=== PATIENT | male | born 1970 | race Caucasian/White ===

== ENCOUNTER 2016-09-25 | Emergency (ER) | payer OTHER ==
--- NOTE | 2016-09-25 18:25 | ED ---
General Adult HPI - General Chief complaint: Recheck/Abnormal Lab/Rx Stated complaint: Med Refill Time Seen by Provider: 09/25/16 17:33 Source: patient, RN notes reviewed Mode of arrival: ambulatory Limitations: no limitations - History of Present Illness Initial comments: Patient is a 46 year old male with chief complaint of left wrist pain after a burn yesterday, and requestiong a medication refill of his lyrica 100mg TID. Patient reports that he attempted to go to his primary care doctor and was not able to be seen as his PCP is on vacation. Patient states that he has chronic peripheral neuropathy. Patient denies any new symptoms, and states he needs to change the dressing on his hand burn. He reports he was seen in the [facility] yesterday and was given silvadene cream. - Related Data Home Medications Medication Instructions Recorded Confirmed HYDROcodone/APAP 10-325MG [[place] 1 tab PO Q8H PRN 09/25/16 09/25/16 10-325] Ibuprofen [Motrin] 800 mg PO Q8H PRN 09/25/16 09/25/16 Pregabalin [Lyrica] 150 mg PO TID 09/25/16 09/25/16 traMADol HCL [Ultram] 50 mg PO Q6HR PRN 09/25/16 09/25/16 Previous Rx's Medication Instructions Recorded Acetaminophen-Codeine 300-30mg 1 tab PO Q4H PRN #12 tablet 09/25/16 [Tylenol #3] Pregabalin [Lyrica] 100 mg PO TID #30 cap 09/25/16 Allergies Allergy/AdvReac Type Severity Reaction Status Date / Time venom-honey bee Allergy RED, HOT, Verified 09/25/16 18:24 [bee venom (honey bee)] ITCHY Review of Systems ROS Statement: Those systems with pertinent positive or pertinent negative responses have been documented in the HPI. ROS Other: All systems not noted in ROS Statement are negative. Past Medical History Past Medical History: CVA/TIA, Fibromyalgia, Musculoskeletal Disorder, Rheumatoid Arthritis (RA) Additional Past Medical History / Comment(s): MIGRAINES, COLITIS, ANKYLOSING SPONDYLITIS, BACK PAIN. History of Any Multi-Drug Resistant Organisms: C-DIFF Date of last positivie culture/infection: 2013 MDRO Source:: colitis Past Surgical History: Cholecystectomy Additional Past Surgical History / Comment(s): neck sx CERVICAL FUSION C-4-5-6 & 7. lumbar fusion L4 and L5 Past Anesthesia/Blood Transfusion Reactions: No Reported Reaction Past Psychological History: Anxiety Additional Psychological History / Comment(s): SOME PANIC EPISODES. Smoking Status: Current every day smoker Past Alcohol Use History: None Reported Additional Past Alcohol Use History / Comment(s): 1 PPD. SMOKING SINCE 18 YRS OLD. Past Drug Use History: None Reported Additional Drug Use History / Comment(s): MARIJUANA IN HIGH SCHOOL General Exam - General Exam Comments Initial Comments: Pleasant 46 year old male. Patient is in no acute distress. Limitations: no limitations General appearance: alert, in no apparent distress Head exam: Present: atraumatic, normocephalic, normal inspection Eye exam: Present: normal appearance, PERRL, EOMI. Absent: scleral icterus, conjunctival injection, periorbital swelling ENT exam: Present: normal exam, mucous membranes moist Neck exam: Present: normal inspection. Absent: tenderness, meningismus, lymphadenopathy Respiratory exam: Present: normal lung sounds bilaterally. Absent: respiratory distress, wheezes, rales, rhonchi, stridor Cardiovascular Exam: Present: regular rate, normal rhythm, normal heart sounds. Absent: systolic murmur, diastolic murmur, rubs, gallop, clicks GI/Abdominal exam: Present: soft, normal bowel sounds. Absent: distended, tenderness, guarding, rebound, rigid Extremities exam: Present: normal inspection, full ROM, normal capillary refill , other (evidence of left hand burn. ). Absent: tenderness, pedal edema, joint swelling, calf tenderness Back exam: Present: normal inspection Neurological exam: Present: alert, oriented X3, CN II-XII intact Psychiatric exam: Present: normal affect, normal mood Skin exam: Present: warm, dry, intact, normal color. Absent: rash Course Vital Signs 09/25/16 16:08 Temperature 98.9 F Pulse Rate 89 Respiratory 16 Rate Blood Pressure 143/87 O2 Sat by Pulse 99 Oximetry Medical Decision Making - Medical Decision Making Patient was given a redressing of left hand burn with silvadene cream. Patient also given Short Rx for lyrica for the next week until seen by PCP. Patient understands treatment plan and will comply. I advised patient that he is not allowed to continue refilling Rx from the [facility]. Return parameters discussed. Disposition Clinical Impression: Burn of left wrist, Neuropathy, Back pain Disposition: HOME SELF-CARE Condition: Good Instructions: Medicine Refill (ED) Additional Instructions: Patient instructed to follow-up with primary care provider. Return to the [facility] if any alarming signs or symptoms occur. Keep area clean with dressing and pain creams. Prescriptions: Acetaminophen-Codeine 300-30mg [Tylenol #3] 1 tab PO Q4H PRN #12 tablet PRN Reason: Pain Pregabalin [Lyrica] 100 mg PO TID #30 cap Referrals: Liborio Echeverria MD [Primary Care Provider] - 1-2 days Time of Disposition: 18:24
== END 2016-09-25 18:48 | disposition home or self-care (01) ==
CPT/HCPCS: 16020; 99281

== ENCOUNTER 2016-09-25 00:08 | Emergency (ER) | payer OTHER ==
[2016-09-25 00:17] VITALS: BP 124/77; TEMP 98
--- NOTE | 2016-09-25 00:24 | ED ---
Burn/Smoke HPI - General Chief complaint: Burn/Smoke Inhalation Stated complaint: Lt hand burn Time Seen by Provider: 09/25/16 00:11 Source: patient, RN notes reviewed Mode of arrival: EMS Limitations: no limitations - History of Present Illness Initial comments: This patient is a 46-year-old man who presents with the onset of a burn to the left hand less than hour ago. The patient states that he had been preparing sandwich. He noted some butter and then while he was carrying it he tripped over a dog and it spilled on The dorsum of his left hand. The patient phoned EMS who transported him here and also gave him a total of 10 mg of morphine for his pain. The patient does state that his last tetanus shot was between 4 and 5 years ago. Patient denies any other injury. MD Complaint: burn -: minutes(s) Type of Exposure: hot liquid Smoke Inhalation: none Place: home Location - Extremities: Left: Hand Severity: severe Associated Symptoms: denies other symptoms Treatment Prior to Arrival: analgesic - Related Data Home Medications Medication Instructions Recorded Confirmed Morphine Sulfate ER [Ms Contin] 60 mg PO BID 07/27/16 08/25/16 Cyclobenzaprine [Flexeril] 10 mg PO TID 08/06/16 08/25/16 Pregabalin [Lyrica] 150 mg PO TID 08/25/16 08/25/16 Previous Rx's Medication Instructions Recorded Ibuprofen [Motrin] 600 mg PO Q6HR PRN #20 tab 08/06/16 Hydrocodone/Acetaminophen [[place] 1 each PO Q6HR PRN #15 tab 08/25/16 5-325] Penicillin V Potassium [Pen Vee K] 500 mg PO QID 10 Days 08/25/16 Allergies Allergy/AdvReac Type Severity Reaction Status Date / Time venom-honey bee Allergy RED, HOT, Verified 08/25/16 12:20 [bee venom (honey bee)] ITCHY Review of Systems ROS Statement: Those systems with pertinent positive or pertinent negative responses have been documented in the HPI. ROS Other: All systems not noted in ROS Statement are negative. Respiratory: Denies: cough, dyspnea Cardiovascular: Denies: chest pain Skin: Reports: lesions (Burn to the left hand) Neurological: Denies: weakness, numbness, paresthesias Past Medical History Past Medical History: CVA/TIA, Fibromyalgia, Musculoskeletal Disorder, Rheumatoid Arthritis (RA) Additional Past Medical History / Comment(s): MIGRAINES, COLITIS, ANKYLOSING SPONDYLITIS, BACK PAIN. History of Any Multi-Drug Resistant Organisms: C-DIFF Date of last positivie culture/infection: 2013 MDRO Source:: colitis Past Surgical History: Cholecystectomy Additional Past Surgical History / Comment(s): neck sx CERVICAL FUSION C-4-5-6 & 7. lumbar fusion L4 and L5 Past Anesthesia/Blood Transfusion Reactions: No Reported Reaction Past Psychological History: Anxiety Additional Psychological History / Comment(s): SOME PANIC EPISODES. Smoking Status: Current every day smoker Past Alcohol Use History: None Reported Additional Past Alcohol Use History / Comment(s): 1 PPD. SMOKING SINCE 18 YRS OLD. Past Drug Use History: None Reported Additional Drug Use History / Comment(s): MARIJUANA IN HIGH SCHOOL General Exam General appearance: alert, in no apparent distress Cardiovascular Exam: Present: other Skin exam: Present: warm, dry, other (The patient has superficial burn to the dorsum of the left hand. It is not circumferential and does not involve the fingers. It is less than 1% TBSA of first-degree, with less than 0.5 cm of some possible second-degree burn area.). Absent: rash Course Vital Signs 09/25/16 09/25/16 00:15 00:55 Temperature 98 F 98 F Pulse Rate 83 80 Respiratory 18 16 Rate Blood Pressure 124/77 124/77 O2 Sat by Pulse 97 99 Oximetry Disposition Clinical Impression: Burn by hot liquid Disposition: HOME SELF-CARE Condition: Good Instructions: Superficial Burn (ED) Referrals: Liborio Echeverria MD [Primary Care Provider] - 1-2 days
[2016-09-25 00:56] VITALS: PULSE 80; RESP 16
== END 2016-09-25 00:56 | disposition home or self-care (01) ==
LOC: EC 00:08
DX: T23.162A Burn of first degree of back of left hand, initial encounter (principal); T31.0 Burns involving less than 10% of body surface; X12.XXXA Contact with other hot fluids, initial encounter; Y93.G3 Activity, cooking and baking; Z79.899 Other long term (current) drug therapy; Z91.030 Bee allergy status; F17.200 Nicotine dependence, unspecified, uncomplicated
CPT/HCPCS: 16020; 99281; 99284

== ENCOUNTER 2016-09-28 17:16 | Emergency (ER) | payer OTHER ==
[2016-09-28] MEDS ORDERED: DIAZEPAM 5 MG TAB PO STA (18:01)
--- NOTE | 2016-09-28 18:57 | ED ---
Anxiety HPI - General Chief Complaint: Anxiety Stated Complaint: ANXIETY Time Seen by Provider: 09/28/16 17:27 Source: patient Mode of arrival: ambulatory - History of Present Illness Initial Comments: Patient is a 46-year-old male presenting with anxiety after her father's 2 days ago. Patient states his father 2 days ago heart attack. Patient states he doesn't really talk to his father feels uncomfortable about him dying. Patient states his father did several inappropriate things going up. Patient denies being suicidal or homicidal. Patient denies hallucinations. Patient follows with a counselor outpatient and can get back in touch with him. Patient states he has no insurance and his PCP is out of network now. Patient understands that he can call his insurance and asked for referrals. He also will be provided referrals today. Patient also is concerned about left hand dorsal aspect burn. Patient states he was given Tylenol 3 which helps. He is requesting a refill. - Related Data Home Medications: Home Medications Medication Instructions Recorded Confirmed HYDROcodone/APAP 10-325MG [[place] 1 tab PO Q8H PRN 09/25/16 09/28/16 10-325] Pregabalin [Lyrica] 150 mg PO TID 09/25/16 09/28/16 traMADol HCL [Ultram] 50 mg PO Q6HR PRN 09/25/16 09/28/16 Naproxen 500 mg PO Q12HR PRN 09/28/16 09/28/16 Previous Rx's Medication Instructions Recorded Acetaminophen-Codeine 300-30mg 1 tab PO Q6H PRN #6 tablet 09/28/16 [Tylenol #3] Allergies/Adverse Reactions: Allergies Allergy/AdvReac Type Severity Reaction Status Date / Time venom-honey bee Allergy Rash/Hives Verified 09/28/16 17:44 [bee venom (honey bee)] Review of Systems ROS Statement: Those systems with pertinent positive or pertinent negative responses have been documented in the HPI. Constitutional: No fever and no chills. HENT: No congestion, no rhinorrhea and no sore throat. Eyes: No discharge and no redness. Respiratory: No cough and no shortness of breath. Cardiovascular: No chest pain and no palpitations. Gastrointestinal: No nausea, no vomiting, no abdominal pain and no diarrhea. Genitourinary: No dysuria and no hematuria. Musculoskeletal: No back pain and no arthralgias. Skin: No pallor and +rash. Neurological: No dizziness and No headaches. Psych: Anxious. Not suicidal, not homicidal, not hallucinating. ROS Other: All systems not noted in ROS Statement are negative. Past Medical History Past Medical History: CVA/TIA, Fibromyalgia, Musculoskeletal Disorder, Rheumatoid Arthritis (RA) Additional Past Medical History / Comment(s): MIGRAINES, COLITIS, ANKYLOSING SPONDYLITIS, BACK PAIN. History of Any Multi-Drug Resistant Organisms: C-DIFF Date of last positivie culture/infection: 2013 MDRO Source:: colitis Past Surgical History: Cholecystectomy Additional Past Surgical History / Comment(s): neck sx CERVICAL FUSION C-4-5-6 & 7. lumbar fusion L4 and L5 Past Anesthesia/Blood Transfusion Reactions: No Reported Reaction Past Psychological History: Anxiety Additional Psychological History / Comment(s): SOME PANIC EPISODES. Smoking Status: Current every day smoker Past Alcohol Use History: None Reported Additional Past Alcohol Use History / Comment(s): 1 PPD. SMOKING SINCE 18 YRS OLD. Past Drug Use History: None Reported Additional Drug Use History / Comment(s): MARIJUANA IN HIGH SCHOOL General Exam - General Exam Comments Initial Comments: Constitutional: Patient appears well-developed and well-nourished. No distress. Anxious appearing. Mother at bedside. Head: Normocephalic and atraumatic. Eyes: Conjunctivae and EOM are normal. Right eye exhibits no discharge. Left eye exhibits no discharge. No scleral icterus. Neck: Normal range of motion. Neck supple. Cardiovascular: Normal rate and regular rhythm. No murmur heard. Pulmonary/Chest: Effort normal and breath sounds normal. No respiratory distress. No wheezes. Abdominal: Soft. No distension. There is no tenderness. There is no rebound and no guarding. Musculoskeletal: Left hand with dorsal aspect red in nature. Burn appears to be healing well. No signs of infection. Mildly tender. Normal range of motion. No edema or tenderness. Neurological: Patient alert and oriented to person, place, and time. Skin: Skin is warm and dry. Not diaphoretic. Psych: Not homicidal, suicidal, hallucinating. Patient is open and engaging in conversation. Nursing notes and vitals reviewed. Limitations: no limitations Course Vital Signs 09/28/16 17:22 Temperature 97.8 F Pulse Rate 104 H Respiratory 20 Rate Blood Pressure 154/86 O2 Sat by Pulse 99 Oximetry - Reevaluation(s) Reevaluation #1: 09/28/16 19:01 Patient given Valium and feeling better. Patient understands that he is going to the grieving process as well as dealing with past history of his father. Patient understands this be done with psychiatrist and counselor. Patient was given referrals. Medical Decision Making - Medical Decision Making Patient is a 46-year-old male presenting with anxiety related to father's 2 days ago. Patient with unremarkable EKG. Symptoms improved with Valium by mouth. Is requesting Tylenol 3 for left hand pain from a burn. This refill for Tylenol 3 was provided. Patient given referrals for PCP as well as mental health. Prior to discharge, patient was resting comfortably in bed. Course of stay improved. Denies pain. Discussed physical exam and diagnostic tests with patient. Questions answered and patient is agreeable to discharge with close follow up with Primary Care Physician. Instructed to return to Emergency Department if symptoms worsen. Rate 91. NSR. No ST-T wave changes. [place] internal normal . QRS interval normal. QTc duration normal. Disposition Clinical Impression: Burn of left hand, Grieving Disposition: HOME SELF-CARE Condition: Good Instructions: Generalized Anxiety Disorder (ED) Prescriptions: Acetaminophen-Codeine 300-30mg [Tylenol #3] 1 tab PO Q6H PRN #6 tablet PRN Reason: Severe Pain Referrals: None,Stated [Primary Care Provider] - 1-2 days Catarina Moya MD [REFERRING] - 1-2 days
[2016-09-28 18:59] VITALS: BP 141/83; PULSE 76; RESP 16; TEMP 98.2
== END 2016-09-28 19:06 | disposition home or self-care (01) ==
LOC: EC 17:16
DX: F43.22 Adjustment disorder with anxiety (principal); T23.002A Burn of unspecified degree of left hand, unspecified site, initial encounter; Z86.73 Personal history of transient ischemic attack (TIA), and cerebral infarction without residual deficits; M79.7 Fibromyalgia; F41.9 Anxiety disorder, unspecified; Z79.899 Other long term (current) drug therapy
CPT/HCPCS: 93005; 99283

== ENCOUNTER 2016-10-06 11:06 | Emergency (ER) | payer OTHER ==
[2016-10-06 11:17] VITALS: BP 167/93; PULSE 114; RESP 20; TEMP 97.4
--- NOTE | 2016-10-06 11:41 | ED ---
General Adult HPI - General Chief complaint: Upper Respiratory Infection Stated complaint: CHEST PAIN, COUGHING Source: patient, RN notes reviewed, old records reviewed Mode of arrival: ambulatory Limitations: no limitations - History of Present Illness Initial comments: Chief complaint and history of present illness a 46-year-old male here with a complaint of muscle aches and pains fever at home sore throat productive cough and chest wall pain with coughing. No stiff neck. - Related Data Home Medications Medication Instructions Recorded Confirmed HYDROcodone/APAP 10-325MG [[place] 1 tab PO Q8H PRN 09/25/16 10/06/16 10-325] Pregabalin [Lyrica] 150 mg PO TID 09/25/16 10/06/16 traMADol HCL [Ultram] 50 mg PO Q6HR PRN 09/25/16 10/06/16 Naproxen 500 mg PO Q12HR PRN 09/28/16 10/06/16 Previous Rx's Medication Instructions Recorded Acetaminophen-Codeine 300-30mg 1 tab PO Q6H PRN #6 tablet 09/28/16 [Tylenol #3] Azithromycin [Zithromax Z-pack] 250 mg PO DIRECTED #6 tab 10/06/16 Allergies Allergy/AdvReac Type Severity Reaction Status Date / Time venom-honey bee Allergy Rash/Hives Verified 10/06/16 11:48 [bee venom (honey bee)] Review of Systems ROS Statement: Those systems with pertinent positive or pertinent negative responses have been documented in the HPI. Review of systems mild headache with coughing. Sore throat with coughing. Chest wall pain with repetitive coughing productive green colored phlegm. No nausea or vomiting. No diarrhea. No skin rashes. No neuro deficits. All systems are reviewed. Past medical problems significant for TIA secondary to stress, fibromyalgia, ankylosing spondylitis, migraines and colitis. The patient's family history COPDmother, no cancers. Patient has ALLERGIES to bees. He does smoke strongly encouraged stop we discussed this for over 3 minutes. Denies alcohol use. ROS Other: All systems not noted in ROS Statement are negative. Past Medical History Past Medical History: CVA/TIA, Fibromyalgia, Musculoskeletal Disorder, Rheumatoid Arthritis (RA) Additional Past Medical History / Comment(s): MIGRAINES, COLITIS, ANKYLOSING SPONDYLITIS, BACK PAIN. History of Any Multi-Drug Resistant Organisms: C-DIFF Date of last positivie culture/infection: 2013 MDRO Source:: colitis Past Surgical History: Cholecystectomy Additional Past Surgical History / Comment(s): neck sx CERVICAL FUSION C-4-5-6 & 7. lumbar fusion L4 and L5 Past Anesthesia/Blood Transfusion Reactions: No Reported Reaction Past Psychological History: Anxiety Additional Psychological History / Comment(s): SOME PANIC EPISODES. Smoking Status: Current every day smoker Past Alcohol Use History: None Reported Additional Past Alcohol Use History / Comment(s): 1 PPD. SMOKING SINCE 18 YRS OLD. Past Drug Use History: None Reported Additional Drug Use History / Comment(s): MARIJUANA IN HIGH SCHOOL General Exam - General Exam Comments Initial Comments: General: The patient is awake and alert, complaining of painful productive cough, green in color. Muscle aches and pains. Vital signs temp 97.4 pulse 114 respiratory rate 20 pulse ox 99% room air blood pressure 167/93. Elevated systolic diastolic most likely due to his illness and pain. This be repeated prior to discharge and the patient was advised to follow-up with family physician in the next 1-2 weeks for recheck blood pressure. Eye: Pupils are equal, round and reactive to light, extra-ocular movements are intact ; there is normal conjunctiva bilaterally. No signs of icterus. Ears, nose, mouth and throat: There are moist mucous membranes and no oral lesions. Reddened oropharynx. Neck: The neck is supple, there is no tenderness , evidence of healed surgical scar from cervical fusion. Cardiovascular: Tachycardic heart rate 114.. No murmur, rub or gallop is appreciated. Respiratory: Lungs are clear to auscultation, respirations are non-labored, breath sounds are equal. No wheezes, stridor, rales, or rhonchi. Gastrointestinal: Soft, non-distended, non-tender abdomen without masses or organomegaly noted. There is no rebound or guarding present. No CVA tenderness. Bowel sounds are unremarkable. Back: There is no tenderness to palpation in the midline. There is no obvious deformity. No rashes noted. Musculoskeletal: Normal ROM, no tenderness, There is no pedal edema. There is no calf tenderness or swelling. Sensation intact. Pulses equal bilaterally 2+. Neurological: Denies any neuro deficits no difficulty walking or balance. Skin: Skin is warm and dry and no rashes or lesions are noted. Limitations: no limitations Course Vital Signs 10/06/16 10/06/16 11:14 11:40 Temperature 97.4 F L Pulse Rate 114 H Respiratory 20 20 Rate Blood Pressure 167/93 O2 Sat by Pulse 99 Oximetry EKG Findings - EKG Comments: EKG Findings:: EKG was done and reviewed at 1116 showing sinus tachycardia rate [address] elevation no ectopy. [place] interval is 142 QRS 80 QT [address] Temple Medical Decision Making - Medical Decision Making Chest x-ray was done and reviewed. The radiologist's findings are there is no focal airspace opacity, pleural effusion, or pneumothorax seen. Cardiac silhouette size is within normal limits. The osseous structures are intact. Impression no acute cardiopulmonary process. As read by Dr. Chaney Influenza reported to be negative by laboratory. The patient be placed on a Z-Shiva to be taken for bronchitis. He's had multiple medications recently old continue with those studies received to help suppress his cough. We did discuss his multiple visits to multiple doctors for audible pain medications. Patient advised follow-up with chronic pain management doctor through his family physician. - Lab Data Lab Results 10/06/16 Range/Units 11:41 Influenza Type A RNA Not Detected (Not Detectd) Influenza Type B (PCR) Not Detected (Not Detectd) Disposition Clinical Impression: Bronchitis Disposition: HOME SELF-CARE Condition: Fair Instructions: Upper Respiratory Infection (ED) Additional Instructions: Increase fluids, take ibuprofen or Tylenol for discomfort and fever. Use your opioid medications as directed Prescriptions: Azithromycin [Zithromax Z-pack] 250 mg PO DIRECTED #6 tab Time of Disposition: 12:54
--- NOTE | 2016-10-06 12:04 | XR ---
EXAMINATION TYPE: XR chest 2V DATE OF EXAM: 10/06/2016 11:59 AM COMPARISON: 01/25/2016 HISTORY: Productive cough with costochondritis TECHNIQUE: Frontal and lateral views of the chest are obtained. FINDINGS: There is no focal air space opacity, pleural effusion, or pneumothorax seen. The cardiac silhouette size is within normal limits. The osseous structures are intact. IMPRESSION: No acute cardiopulmonary process.
[2016-10-06] MEDS ORDERED: SODIUM CHLORIDE 0.9% 500 ML IV STA (12:35)
[2016-10-06] MEDS ORDERED: SODIUM CHLORIDE 0.9% 1,000 ML IV STA (12:35)
[2016-10-06] MEDS ORDERED: NALOXONE 0.4 MG/ML 10 ML VIAL IVP STA (12:37)
== END 2016-10-06 12:50 | disposition home or self-care (01) ==
LOC: EC 11:06
DX: J40 Bronchitis, not specified as acute or chronic (principal); M79.7 Fibromyalgia; F17.200 Nicotine dependence, unspecified, uncomplicated; Z91.030 Bee allergy status; Z79.899 Other long term (current) drug therapy
CPT/HCPCS: 71020; 87502; 93005; 99284

== ENCOUNTER 2016-11-05 14:21 | Emergency (ER) | payer OTHER ==
[2016-11-05 14:28] VITALS: BP 153/76; PULSE 105; RESP 20; TEMP 98.9
--- NOTE | 2016-11-05 15:02 | ED ---
General Adult HPI - General Chief complaint: Back Pain/Injury Stated complaint: back pain Time Seen by Provider: 11/05/16 14:38 Source: patient, RN notes reviewed Mode of arrival: ambulatory Limitations: no limitations - History of Present Illness Initial comments: Patient is a pleasant 46-year-old male presenting to the emergency department back pain. Patient did have rods placed by his doctor at [facility] 2 weeks ago. Patient has continued discomfort. Patient feels discomfort may be somewhat increasing. Patient denies any fevers or weakness. Patient has not noticed any redness. Patient questions whether or not there could be any swelling. - Related Data Home Medications Medication Instructions Recorded Confirmed HYDROcodone/APAP 10-325MG [[place] 1 tab PO Q8H PRN 09/25/16 10/06/16 10-325] Pregabalin [Lyrica] 150 mg PO TID 09/25/16 10/06/16 traMADol HCL [Ultram] 50 mg PO Q6HR PRN 09/25/16 10/06/16 Naproxen 500 mg PO Q12HR PRN 09/28/16 10/06/16 Previous Rx's Medication Instructions Recorded Acetaminophen-Codeine 300-30mg 1 tab PO Q6H PRN #6 tablet 09/28/16 [Tylenol #3] Azithromycin [Zithromax Z-pack] 250 mg PO DIRECTED #6 tab 10/06/16 Acetaminophen-Codeine 300-30mg 2 each PO Q6H PRN #12 tablet 11/05/16 [Tylenol #3] Allergies Allergy/AdvReac Type Severity Reaction Status Date / Time venom-honey bee Allergy Rash/Hives Verified 11/05/16 14:28 [bee venom (honey bee)] Review of Systems ROS Statement: Those systems with pertinent positive or pertinent negative responses have been documented in the HPI. ROS Other: All systems not noted in ROS Statement are negative. Constitutional: Denies: fever, chills, night sweats Eyes: Denies: eye pain ENT: Denies: ear pain Respiratory: Denies: cough Cardiovascular: Denies: palpitations Endocrine: Denies: fatigue Gastrointestinal: Denies: abdominal pain Genitourinary: Denies: dysuria Musculoskeletal: Reports: back pain Skin: Denies: rash Neurological: Denies: weakness Past Medical History Past Medical History: CVA/TIA, Fibromyalgia, Musculoskeletal Disorder, Rheumatoid Arthritis (RA) Additional Past Medical History / Comment(s): MIGRAINES, COLITIS, ANKYLOSING SPONDYLITIS, BACK PAIN. History of Any Multi-Drug Resistant Organisms: C-DIFF Date of last positivie culture/infection: 2013 MDRO Source:: colitis Past Surgical History: Cholecystectomy, Orthopedic Surgery Additional Past Surgical History / Comment(s): neck sx CERVICAL FUSION C-4-5-6 & 7. lumbar fusion L4 and L5 Past Anesthesia/Blood Transfusion Reactions: No Reported Reaction Past Psychological History: Anxiety Additional Psychological History / Comment(s): SOME PANIC EPISODES. Smoking Status: Current every day smoker Past Alcohol Use History: None Reported Additional Past Alcohol Use History / Comment(s): 1 PPD. SMOKING SINCE 18 YRS OLD. Past Drug Use History: None Reported Additional Drug Use History / Comment(s): MARIJUANA IN HIGH SCHOOL General Exam Limitations: no limitations General appearance: alert, in no apparent distress Head exam: Present: atraumatic Eye exam: Present: normal appearance ENT exam: Present: normal oropharynx Neck exam: Present: normal inspection Respiratory exam: Present: normal lung sounds bilaterally Cardiovascular Exam: Present: regular rate, normal rhythm GI/Abdominal exam: Present: soft. Absent: tenderness Extremities exam: Present: normal inspection Neurological exam: Present: alert. Absent: motor sensory deficit Expanded Sensory exam: Lower Extremity Light Touch: Normal Motor strength exam: RLE: 5, LLE: 5 Psychiatric exam: Present: normal affect, normal mood Skin exam: Present: other (3 incisions lateral to midline in the lower lumbar/ upper sacral region. There is trace erythema and swelling that is felt to be postoperative in nature.) Course Vital Signs 11/05/16 14:26 Temperature 98.9 F Pulse Rate 105 H Respiratory 20 Rate Blood Pressure 153/76 O2 Sat by Pulse 99 Oximetry Medical Decision Making - Medical Decision Making Patient is informed exam and felt to be low risk for infection. Patient is advised to follow-up with his doctor tomorrow rather than Sunday as scheduled. Patient is further advised if symptoms worsen to go directly to his doctors or the hospital where the procedure was done. This includes increased pain or weakness or fever or swelling or redness. Patient requests Tylenol 3. Patient states he was prescribed Percocet the pills are too strong for him. Disposition Clinical Impression: Back pain Disposition: HOME SELF-CARE Condition: Stable Instructions: Chronic Back Pain (ED) Additional Instructions: Please follow-up with your surgeon tomorrow. Return or head directly to [facility] for increased pain, fever, redness, swelling, worsening symptoms or other concerns. Prescriptions: Acetaminophen-Codeine 300-30mg [Tylenol #3] 2 each PO Q6H PRN #12 tablet PRN Reason: Pain Referrals: Liborio Echeverria MD [Primary Care Provider] - 1-2 days
== END 2016-11-05 15:09 | disposition home or self-care (01) ==
LOC: EC 14:21
DX: G89.29 Other chronic pain (principal); M54.9 Dorsalgia, unspecified; L53.9 Erythematous condition, unspecified; M06.9 Rheumatoid arthritis, unspecified; M79.7 Fibromyalgia; F17.200 Nicotine dependence, unspecified, uncomplicated; Z79.899 Other long term (current) drug therapy; Z91.030 Bee allergy status; Z98.1 Arthrodesis status; Z86.73 Personal history of transient ischemic attack (TIA), and cerebral infarction without residual deficits
CPT/HCPCS: 99283

== ENCOUNTER 2017-01-27 18:03 | Emergency (ER) | payer OTHER ==
[2017-01-27 18:10] VITALS: BP 126/84; PULSE 117; RESP 16; TEMP 97
--- NOTE | 2017-01-27 18:37 | ED ---
ENT HPI - General Chief complaint: Dental/Oral Stated complaint: DENTAL PAIN Time Seen by Provider: 01/27/17 18:23 Source: patient Mode of arrival: ambulatory Limitations: no limitations - History of Present Illness Initial comments: Patient is a 46-year-old male presenting to the emergency department with complaints of toothache 2 weeks increasing over the last week. Patient states that he has a dentist appointment on 02/09/2017 but is unable to tolerate the pain. Patient states he took Tylenol and Motrin prior to arrival without relief. Patient currently rates pain a 10. Described as sharp. Exacerbated with eating. Patient denies chills, fevers, nausea, vomiting, shortness of breath, chest pain, abdominal pain, numbness or tingling, or trismus. Patient denies ear pain or tinnitus. MD complaint: tooth pain Onset/Timin -: week(s) Location: tooth # (28) Severity: moderate Severity scale (1-10): 8 Quality: sharp Consistency: constant Improves with: none Worsens with: eating Context- Dental: poor dental care Associated Symptoms: toothache - Related Data Home Medications Medication Instructions Recorded Confirmed Pregabalin [Lyrica] 150 mg PO TID 11/05/16 01/27/17 Previous Rx's Medication Instructions Recorded Penicillin V Potassium [Pen Vee K] 500 mg PO QID #28 tab 01/27/17 traMADol HCl [Ultram] 50 mg PO Q6H PRN #12 tab 01/27/17 Allergies Allergy/AdvReac Type Severity Reaction Status Date / Time venom-honey bee Allergy Rash/Hives Verified 01/27/17 18:10 [bee venom (honey bee)] oxycodone AdvReac Nausea Verified 01/27/17 18:10 Review of Systems ROS Statement: Those systems with pertinent positive or pertinent negative responses have been documented in the HPI. ROS Other: All systems not noted in ROS Statement are negative. Past Medical History Past Medical History: CVA/TIA, Fibromyalgia, Musculoskeletal Disorder, Rheumatoid Arthritis (RA) Additional Past Medical History / Comment(s): MIGRAINES, COLITIS, ANKYLOSING SPONDYLITIS, BACK PAIN. History of Any Multi-Drug Resistant Organisms: C-DIFF Date of last positivie culture/infection: 2013 MDRO Source:: colitis Past Surgical History: Cholecystectomy, Orthopedic Surgery Additional Past Surgical History / Comment(s): neck sx CERVICAL FUSION C-4-5-6 & 7. lumbar fusion L4 and L5 Past Anesthesia/Blood Transfusion Reactions: No Reported Reaction Past Psychological History: Anxiety Additional Psychological History / Comment(s): SOME PANIC EPISODES. Smoking Status: Current every day smoker Past Alcohol Use History: None Reported Additional Past Alcohol Use History / Comment(s): 1 PPD. SMOKING SINCE 18 YRS OLD. Past Drug Use History: None Reported Additional Drug Use History / Comment(s): MARIJUANA IN HIGH SCHOOL General Exam Limitations: no limitations General appearance: alert, in no apparent distress Head exam: Present: atraumatic, normocephalic, normal inspection Eye exam: Present: normal appearance. Absent: scleral icterus, conjunctival injection, periorbital swelling, periorbital tenderness Expanded Ear exam: Present: normal external inspection Mouth exam: Present: tongue normal. Absent: drooling, trismus Teeth exam: Present: fractured tooth # (28), dental tenderness # (28) Throat exam: normal inspection. negative: tonsillar erythema, tonsillomegaly, tonsillar exudate, R peritonsillar mass, L peritonsillar mass Neck exam: Present: normal inspection, full ROM. Absent: tenderness, lymphadenopathy Respiratory exam: Present: normal lung sounds bilaterally. Absent: respiratory distress, wheezes, rales, rhonchi, stridor Cardiovascular Exam: Present: regular rate, tachycardia, normal heart sounds. Absent: systolic murmur GI/Abdominal exam: Present: soft, normal bowel sounds. Absent: distended, tenderness Extremities exam: Present: normal inspection, full ROM, normal capillary refill. Absent: tenderness, pedal edema, joint swelling, calf tenderness Neurological exam: Present: alert, oriented X3, normal gait, other (No focal deficits noted) Psychiatric exam: Present: normal affect, normal mood Course Vital Signs 01/27/17 18:07 Temperature 97.0 F L Pulse Rate 117 H Respiratory 16 Rate Blood Pressure 126/84 O2 Sat by Pulse 98 Oximetry Medical Decision Making - Medical Decision Making Fractured tooth #28. Toothache #28. Patient placed on antibiotics and given pain medicine. Patient instructed to keep dental appointment as already scheduled. Patient instructed to return to the emergency department with new or worsening symptoms. Patient agrees with treatment plan. Return parameters and discharge instructions reviewed. Disposition Clinical Impression: Fracture of tooth, Tooth pain Disposition: HOME SELF-CARE Condition: Good Instructions: Toothache (ED) Additional Instructions: Finish antibiotic as prescribed. Apply warm compresses for comfort. Continue tramadol for pain as necessary. Follow-up with dentist as previously arranged. Please return to the emergency department with any new or worsening symptoms. Prescriptions: Penicillin V Potassium [Pen Vee K] 500 mg PO QID #28 tab traMADol HCl [Ultram] 50 mg PO Q6H PRN #12 tab PRN Reason: Pain Referrals: Liborio Echeverria MD [Primary Care Provider] - 1-2 days Time of Disposition: 18:37
== END 2017-01-27 18:40 | disposition home or self-care (01) ==
LOC: EC 18:03
DX: S02.5XXA Fracture of tooth (traumatic), initial encounter for closed fracture (principal); F17.200 Nicotine dependence, unspecified, uncomplicated; Z79.899 Other long term (current) drug therapy; Z91.030 Bee allergy status; Z88.8 Allergy status to other drugs, medicaments and biological substances; X58.XXXA Exposure to other specified factors, initial encounter
CPT/HCPCS: 99282

== ENCOUNTER 2017-02-10 17:23 | Emergency (ER) | payer OTHER ==
[2017-02-10 17:31] VITALS: BP 144/94; PULSE 93; RESP 20; TEMP 98.2
--- NOTE | 2017-02-10 18:02 | ED ---
ENT HPI - General Chief complaint: Dental/Oral Stated complaint: Dental Pain Time Seen by Provider: 02/10/17 17:36 Source: patient Mode of arrival: ambulatory Limitations: no limitations - History of Present Illness Initial comments: Patient is a 46-year-old male presenting to the emergency department with complaints of toothache 2 weeks increasing over the 2 days. Patient was recently seen on 01/27/2017 with similar complaints and was started on antibiotics. Patient states he finished the antibiotics and pain return. Patient states that he has a dentist appointment on 02/16/2017. Patient states he Motrin prior to arrival without relief. Patient currently rates pain a 10. Described as sharp. Exacerbated with eating. Patient denies chills, fevers, nausea, vomiting, shortness of breath, chest pain, abdominal pain, numbness or tingling, or trismus. Patient denies ear pain or tinnitus. - Related Data Home Medications Medication Instructions Recorded Confirmed Pregabalin [Lyrica] 150 mg PO TID 11/05/16 02/10/17 Previous Rx's Medication Instructions Recorded traMADol HCl [Ultram] 50 mg PO Q6H PRN #12 tab 01/27/17 Cephalexin [Keflex] 500 mg PO Q6HR #40 cap 02/10/17 traMADol HCl [Ultram] 50 mg PO Q6H PRN #20 tab 02/10/17 Allergies Allergy/AdvReac Type Severity Reaction Status Date / Time venom-honey bee Allergy Rash/Hives Verified 02/10/17 17:31 [bee venom (honey bee)] oxycodone AdvReac Nausea Verified 02/10/17 17:31 Review of Systems ROS Statement: Those systems with pertinent positive or pertinent negative responses have been documented in the HPI. ROS Other: All systems not noted in ROS Statement are negative. Past Medical History Past Medical History: CVA/TIA, Fibromyalgia, Musculoskeletal Disorder, Rheumatoid Arthritis (RA) Additional Past Medical History / Comment(s): MIGRAINES, COLITIS, ANKYLOSING SPONDYLITIS, BACK PAIN. History of Any Multi-Drug Resistant Organisms: C-DIFF Date of last positivie culture/infection: 2013 MDRO Source:: colitis Past Surgical History: Cholecystectomy, Orthopedic Surgery Additional Past Surgical History / Comment(s): neck sx CERVICAL FUSION C-4-5-6 & 7. lumbar fusion L4 and L5 Past Anesthesia/Blood Transfusion Reactions: No Reported Reaction Past Psychological History: Anxiety Additional Psychological History / Comment(s): SOME PANIC EPISODES. Smoking Status: Current every day smoker Past Alcohol Use History: None Reported Additional Past Alcohol Use History / Comment(s): 1 PPD. SMOKING SINCE 18 YRS OLD. Past Drug Use History: None Reported Additional Drug Use History / Comment(s): MARIJUANA IN HIGH SCHOOL General Exam - General Exam Comments Initial Comments: Limitations: no limitations General appearance: alert, in no apparent distress Head exam: Present: atraumatic, normocephalic, normal inspection Eye exam: Present: normal appearance. Absent: scleral icterus, conjunctival injection, periorbital swelling, periorbital tenderness Expanded Ear exam: Present: normal external inspection Mouth exam: Present: tongue normal. Absent: drooling, trismus Teeth exam: Present: fractured tooth # (28), dental tenderness # (28) Throat exam: normal inspection. negative: tonsillar erythema, tonsillomegaly, tonsillar exudate, R peritonsillar mass, L peritonsillar mass Neck exam: Present: normal inspection, full ROM. Absent: tenderness, lymphadenopathy Respiratory exam: Present: normal lung sounds bilaterally. Absent: respiratory distress, wheezes, rales, rhonchi, stridor Cardiovascular Exam: Present: regular rate, tachycardia, normal heart sounds. Absent: systolic murmur GI/Abdominal exam: Present: soft, normal bowel sounds. Absent: distended, tenderness Extremities exam: Present: normal inspection, full ROM, normal capillary refill. Absent: tenderness, pedal edema, joint swelling, calf tenderness Neurological exam: Present: alert, oriented X3, normal gait, other (No focal deficits noted) Psychiatric exam: Present: normal affect, normal mood Limitations: no limitations Course Vital Signs 02/10/17 17:29 Temperature 98.2 F Pulse Rate 93 Respiratory 20 Rate Blood Pressure 144/94 O2 Sat by Pulse 100 Oximetry Medical Decision Making - Medical Decision Making Toothache to tooth #28 with history of fracture. Patient started on Keflex and given prescription for pain medicine. Patient instructed to keep appointment with dentist as already scheduled. Patient instructed to return to the emergency department with any new or worsening symptoms. Patient agrees to plan of care. Discharge instructions and return parameters reviewed. Disposition Clinical Impression: Fracture of tooth, Pain, dental Disposition: HOME SELF-CARE Condition: Good Instructions: Toothache (ED) Additional Instructions: Finish antibiotic as prescribed. Apply warm compresses for comfort. Continue tramadol for pain as necessary. Follow-up with dentist as previously arranged. Please return to the emergency department with any new or worsening symptoms. Prescriptions: Cephalexin [Keflex] 500 mg PO Q6HR #40 cap traMADol HCl [Ultram] 50 mg PO Q6H PRN #20 tab PRN Reason: Pain Referrals: Liborio Echeverria MD [Primary Care Provider] - 1-2 days Time of Disposition: 18:03
== END 2017-02-10 18:16 | disposition home or self-care (01) ==
LOC: EC 17:23
DX: S02.5XXD Fracture of tooth (traumatic), subsequent encounter for fracture with routine healing (principal); M79.7 Fibromyalgia; F41.9 Anxiety disorder, unspecified; F17.200 Nicotine dependence, unspecified, uncomplicated; Z79.899 Other long term (current) drug therapy; Z91.030 Bee allergy status; Z88.5 Allergy status to narcotic agent; X58.XXXD Exposure to other specified factors, subsequent encounter
CPT/HCPCS: 99282

== ENCOUNTER 2018-04-30 13:46 | Emergency (ER) | payer BC ==
[2018-04-30 13:59] VITALS: BP 159/95; PULSE 80; RESP 18; TEMP 98
--- NOTE | 2018-04-30 14:11 | ED ---
General Adult HPI - General Chief complaint: Anxiety Stated complaint: anxiety/eye problem Time Seen by Provider: 04/30/18 13:54 Source: patient, RN notes reviewed Mode of arrival: ambulatory Limitations: no limitations - History of Present Illness Initial comments: 47-year-old male presents emergency Department chief complaint anxiety. Patient states she's having trouble dealing with passing of his mother. Patient states the is tomorrow. Patient states that his mother unexpectedly from a heart attack. Patient denies suicidal or homicidal ideation. Patient states that he had similar symptoms after passing of his father. Patient also complains of left eye irritation. He states that the lower eyelid is swollen he states there is a small bump that he noticed. Denies any visual disturbance. Denies any pain with ocular movement. Patient denies any headache, dizziness. - Related Data Home Medications Medication Instructions Recorded Confirmed Pregabalin [Lyrica] 150 mg PO TID 11/05/16 02/10/17 Previous Rx's Medication Instructions Recorded traMADol HCl [Ultram] 50 mg PO Q6H PRN #12 tab 01/27/17 Cephalexin [Keflex] 500 mg PO Q6HR #40 cap 02/10/17 traMADol HCl [Ultram] 50 mg PO Q6H PRN #20 tab 02/10/17 Diazepam [Valium] 5 mg PO BID PRN #10 tab 04/30/18 Tobramycin [Tobrex 0.3% Ophth Soln] 1 drop LEFT EYE Q4HR #5 ml 04/30/18 Allergies Allergy/AdvReac Type Severity Reaction Status Date / Time venom-honey bee Allergy Rash/Hives Verified 04/30/18 13:59 [bee venom (honey bee)] oxycodone AdvReac Nausea Verified 04/30/18 13:59 Review of Systems ROS Statement: Those systems with pertinent positive or pertinent negative responses have been documented in the HPI. ROS Other: All systems not noted in ROS Statement are negative. Past Medical History Past Medical History: CVA/TIA, Fibromyalgia, Musculoskeletal Disorder, Rheumatoid Arthritis (RA) Additional Past Medical History / Comment(s): MIGRAINES, COLITIS, ANKYLOSING SPONDYLITIS, BACK PAIN. History of Any Multi-Drug Resistant Organisms: C-DIFF Date of last positivie culture/infection: 2013 MDRO Source:: colitis Past Surgical History: Cholecystectomy, Orthopedic Surgery Additional Past Surgical History / Comment(s): neck sx CERVICAL FUSION C-4-5-6 & 7. lumbar fusion L4 and L5 Past Anesthesia/Blood Transfusion Reactions: No Reported Reaction Past Psychological History: Anxiety Smoking Status: Current every day smoker Past Alcohol Use History: None Reported Past Drug Use History: None Reported General Exam Limitations: no limitations General appearance: alert, in no apparent distress Head exam: Present: atraumatic, normocephalic, normal inspection Eye exam: Present: PERRL, EOMI, other (Left lower eyelid there is no sign noted , mild swelling). Absent: scleral icterus, conjunctival injection, periorbital swelling ENT exam: Present: normal exam, normal oropharynx, mucous membranes moist, TM's normal bilaterally, normal external ear exam Neck exam: Present: normal inspection, full ROM. Absent: tenderness, meningismus, lymphadenopathy Respiratory exam: Present: normal lung sounds bilaterally. Absent: respiratory distress, wheezes, rales, rhonchi, stridor Cardiovascular Exam: Present: regular rate, normal rhythm, normal heart sounds. Absent: systolic murmur, diastolic murmur, rubs, gallop, clicks Psychiatric exam: Present: other (Patient is tearful) Skin exam: Present: warm, dry, intact, normal color. Absent: rash Course Vital Signs 04/30/18 13:57 Temperature 98.0 F Pulse Rate 80 Respiratory 18 Rate Blood Pressure 159/95 O2 Sat by Pulse 99 Oximetry Medical Decision Making - Medical Decision Making 47-year-old male presented to emergency from it for anxiety, left eye irritation. Patient has an internal stye will be given Tobrex eyedrops. Patient advised to apply warm compresses. Patient does have acute anxiety secondary to events. Patient we given Valium as it had problems with her medications in the past. Disposition Clinical Impression: Anxiety in acute stress reaction, Internal hordeolum of left eye Disposition: HOME SELF-CARE Condition: Stable Instructions: Generalized Anxiety Disorder (ED) Additional Instructions: Please return to the Emergency Department if symptoms worsen or any other concerns. Prescriptions: Diazepam [Valium] 5 mg PO BID PRN #10 tab PRN Reason: Anxiety Tobramycin [Tobrex 0.3% Ophth Soln] 1 drop LEFT EYE Q4HR #5 ml Is patient prescribed a controlled substance at d/c from ED?: Yes When asked, does pt state using other controlled substances?: Yes If prescribed controlled substance>3 days was MAPS reviewed?: Yes Referrals: Claudette Camp DO [Primary Care Provider] - 1-2 days Time of Disposition: 14:11
== END 2018-04-30 14:19 | disposition home or self-care (01) ==
LOC: EC 13:46
DX: H00.026 Hordeolum internum left eye, unspecified eyelid (principal); F41.9 Anxiety disorder, unspecified; F43.0 Acute stress reaction; F17.200 Nicotine dependence, unspecified, uncomplicated; Z79.899 Other long term (current) drug therapy; Z88.8 Allergy status to other drugs, medicaments and biological substances; Z91.030 Bee allergy status
CPT/HCPCS: 99283

== ENCOUNTER → 2018-05-08 | Outpatient (CLI) | payer BC ==
--- NOTE | 2018-05-08 10:35 | CT ---
EXAMINATION TYPE: CT lumbar spine wo con DATE OF EXAM: 05/08/2018 COMPARISON: 07/12/2016 HISTORY: back pain CT DLP: 624.3 mGycm CONTRAST: None TECHNIQUE: CT of the lumbar spine is performed on a spiral scan at 3 mm thick sections. Reconstructed images are performed in the coronal and sagittal planes. FINDINGS: T12-L1: No focal disc herniation or significant disc bulge is evident. No spinal canal stenosis or neural foraminal stenosis is present. L1-L2: No focal disc herniation or significant disc bulge is evident. No spinal canal stenosis or n eural foraminal stenosis is present L2-L3: No focal disc herniation or significant disc bulge is evident. No spinal canal stenosis or n eural foraminal stenosis is present L3-L4: Mild disc bulging is anterior thecal sac flattening. No AP spinal canal stenosis is present. N eural foramen are patent. Ligamentum flavum laxity is mild posterior lateral thecal sac compression. L4-L5: Pedicle screws are present. Beam hardening artifact causes mild limitation. No significant dis c bulge or spinal canal stenosis is present. Facet degenerative changes are noted. L5-S1: There is narrowing of the disc height. Pedicle screws are present L5 and S1. Disc spacers pres ent. Sacroiliac joint degenerative changes are present. IMPRESSION: Mild disc bulging and mild ligamentum flavum laxity L3-4 has thecal sac compression without stenosis. 2. Stable fixation pedicle screws. 3. Note is made of degenerative changes at sacroiliac joints bilaterally. 4. Exam is stable from 2015.
== END | disposition home or self-care (01) ==
LOC: RADCTMAIN 07:32
PROVIDERS: ATTEND Neurological Surgery
DX: M51.26 Other intervertebral disc displacement, lumbar region (principal); M24.28 Disorder of ligament, vertebrae; Z98.1 Arthrodesis status
CPT/HCPCS: 72131

== ENCOUNTER 2019-02-23 11:23 | Emergency (ER) | payer BC ==
[2019-02-23 11:28] VITALS: BP 131/88; PULSE 78; RESP 18; TEMP 97.7
--- NOTE | 2019-02-23 11:54 | ED ---
Anxiety HPI - General Chief Complaint: Anxiety Stated Complaint: anxiety ( brother ) Time Seen by Provider: 02/23/19 11:44 Source: patient, RN notes reviewed Mode of arrival: ambulatory Limitations: no limitations - History of Present Illness Initial Comments: 48-year-old male presents emergency Department chief complaint of anxiety issues. Patient has underlying anxiety but has been well controlled. Patient states that his father unexpectedly on in which she was told her motor vehicle accident. Patient states that he is not suicidal or homicidal. Patient states she's susceptible to his anxiety and states that it's getting worse during his healing. Patient denies physical complaints. Patient does not take any current anxiolytics. Patient denies any other complaints. - Related Data Home Medications: Home Medications Medication Instructions Recorded Confirmed Cyclobenzaprine [Flexeril] 10 mg PO TID PRN 04/30/18 04/30/18 Hydrocodone/Acetaminophen [[place] 1 tab PO TID PRN 04/30/18 04/30/18 10-325] Pregabalin [Lyrica] 225 mg PO BID 04/30/18 04/30/18 Previous Rx's Medication Instructions Recorded Tobramycin [Tobrex 0.3% Ophth Soln] 1 drop LEFT EYE Q4HR #5 ml 04/30/18 Diazepam [Valium] 5 mg PO BID PRN #10 tab 02/23/19 Allergies/Adverse Reactions: Allergies Allergy/AdvReac Type Severity Reaction Status Date / Time venom-honey bee Allergy Rash/Hives Verified 02/23/19 11:28 [bee venom (honey bee)] oxycodone AdvReac Nausea Verified 02/23/19 11:28 Review of Systems ROS Statement: Those systems with pertinent positive or pertinent negative responses have been documented in the HPI. ROS Other: All systems not noted in ROS Statement are negative. Past Medical History Past Medical History: CVA/TIA, Fibromyalgia, Musculoskeletal Disorder, Rheumatoid Arthritis (RA) Additional Past Medical History / Comment(s): MIGRAINES, COLITIS, ANKYLOSING SPONDYLITIS, BACK PAIN. History of Any Multi-Drug Resistant Organisms: C-DIFF Date of last positivie culture/infection: 2013 MDRO Source:: colitis Past Surgical History: Cholecystectomy, Orthopedic Surgery Additional Past Surgical History / Comment(s): neck sx CERVICAL FUSION C-4-5-6 &7. lumbar fusion L4 and L5 Past Anesthesia/Blood Transfusion Reactions: No Reported Reaction Past Psychological History: Anxiety Smoking Status: Current every day smoker Past Alcohol Use History: None Reported Past Drug Use History: None Reported General Exam Limitations: no limitations General appearance: alert, in no apparent distress Head exam: Present: atraumatic, normocephalic, normal inspection Respiratory exam: Present: normal lung sounds bilaterally. Absent: respiratory distress, wheezes, rales, rhonchi, stridor Cardiovascular Exam: Present: regular rate, normal rhythm, normal heart sounds. Absent: systolic murmur, diastolic murmur, rubs, gallop, clicks Neurological exam: Present: alert, oriented X3, CN II-XII intact Psychiatric exam: Present: anxious Skin exam: Present: warm, dry, intact, normal color. Absent: rash Course Vital Signs 02/23/19 11:24 Temperature 97.7 F Pulse Rate 78 Respiratory 18 Rate Blood Pressure 131/88 O2 Sat by Pulse 100 Oximetry Medical Decision Making - Medical Decision Making 48-year-old male presented for anxiety issues related to the family . I did review maps which patient has not had any benzodiazepines in several months. Patient is currently on Lyrica and EC receive pain medication. Patient will be discharged with close follow-up return parameters were discussed. Disposition Clinical Impression: Acute anxiety Disposition: HOME SELF-CARE Condition: Stable Instructions (If sedation given, give patient instructions): Generalized Anxiety Disorder (ED) Additional Instructions: Please return to the Emergency Department if symptoms worsen or any other concerns. Prescriptions: Diazepam [Valium] 5 mg PO BID PRN #10 tab PRN Reason: Anxiety Is patient prescribed a controlled substance at d/c from ED?: Yes When asked, does pt state using other controlled substances?: Yes If prescribed controlled substance>3 days was MAPS reviewed?: Yes Referrals: Claudette Camp DO [Primary Care Provider] - 1-2 days
== END 2019-02-23 12:15 | disposition home or self-care (01) ==
LOC: EC 11:23
DX: F41.9 Anxiety disorder, unspecified (principal); M79.7 Fibromyalgia; F17.200 Nicotine dependence, unspecified, uncomplicated; Z86.73 Personal history of transient ischemic attack (TIA), and cerebral infarction without residual deficits; Z79.899 Other long term (current) drug therapy; Z91.030 Bee allergy status; Z88.5 Allergy status to narcotic agent
CPT/HCPCS: 99283

== ENCOUNTER 2019-04-08 10:24 | Emergency (ER) | payer BC ==
[2019-04-08 10:30] VITALS: BP 131/91; PULSE 85; RESP 18; TEMP 98.1
--- NOTE | 2019-04-08 10:56 | ED ---
Anxiety HPI - General Chief Complaint: Anxiety Stated Complaint: ANXIETY Time Seen by Provider: 04/08/19 10:37 Source: patient Mode of arrival: ambulatory - History of Present Illness Initial Comments: Patient is a 48-year-old male presenting to emergency Department with chief complaint of anxiety. Patient reports his brother has to a month ago and recently his anxiety is increased. Patient was prescribed Celexa by his primary care after the but reports minimal improvement in mood. Patient reports the primary care double his dose and is causing him exacerbation of his symptoms. Patient reports yesterday he had a panic attack where he developed rapid shallow breathing, palpitations, chest tightness. Patient reports that his primary care is not in the office until the following Sunday and is asking for antianxiety medication. Patient denies any suicidal thoughts or ideations. MD Complaint: heart racing - Related Data Home Medications: Home Medications Medication Instructions Recorded Confirmed Citalopram Hydrobromide [CeleXA] 40 mg PO DAILY 04/08/19 04/08/19 Ibuprofen [Motrin Ib] 800 mg PO Q6H PRN 04/08/19 04/08/19 Lisinopril [Zestril] 20 mg PO DAILY 04/08/19 04/08/19 Allergies/Adverse Reactions: Allergies Allergy/AdvReac Type Severity Reaction Status Date / Time venom-honey bee Allergy Rash/Hives Verified 04/08/19 10:25 [bee venom (honey bee)] oxycodone AdvReac Itching Verified 04/08/19 10:39 Review of Systems ROS Statement: Those systems with pertinent positive or pertinent negative responses have been documented in the HPI. ROS Other: All systems not noted in ROS Statement are negative. Past Medical History Past Medical History: CVA/TIA, Fibromyalgia, Musculoskeletal Disorder, Rheumatoid Arthritis (RA) Additional Past Medical History / Comment(s): MIGRAINES, COLITIS, ANKYLOSING SPONDYLITIS, BACK PAIN. History of Any Multi-Drug Resistant Organisms: C-DIFF Date of last positivie culture/infection: 2013 MDRO Source:: colitis Past Surgical History: Cholecystectomy, Orthopedic Surgery Additional Past Surgical History / Comment(s): neck sx CERVICAL FUSION C-4-5-6 &7. lumbar fusion L4 and L5 Past Anesthesia/Blood Transfusion Reactions: No Reported Reaction Past Psychological History: Anxiety Smoking Status: Current every day smoker Past Alcohol Use History: None Reported Past Drug Use History: None Reported General Exam Limitations: no limitations General appearance: alert, in no apparent distress, anxious Head exam: Present: atraumatic, normocephalic, normal inspection Eye exam: Present: normal appearance, PERRL, EOMI Pupils: Present: normal accommodation ENT exam: Present: normal exam, mucous membranes moist, normal external ear exam Neck exam: Present: normal inspection, full ROM Respiratory exam: Present: normal lung sounds bilaterally Cardiovascular Exam: Present: regular rate, normal rhythm, normal heart sounds Extremities exam: Present: normal inspection, full ROM Back exam: Present: normal inspection, full ROM Neurological exam: Present: alert, oriented X3 Psychiatric exam: Present: normal affect, normal mood, anxious Skin exam: Present: warm, intact, normal color Course Vital Signs 04/08/19 10:27 Temperature 98.1 F Pulse Rate 85 Respiratory 18 Rate Blood Pressure 131/91 O2 Sat by Pulse 99 Oximetry Medical Decision Making - Medical Decision Making Patient is a 48-year-old male presenting to emergency Department with a chief complaint of anxiety. Advised the patient to follow-up with his primary care regarding the symptoms from his antidepressants. The patient drove to the ED and does not have a ride home. This when I cannot give the patient any benzodiazepines. Patient was offered assessment with psychiatry in the ED but he declined. Patient advised to follow-up with primary care or psychiatry for further management. Strict return parameters were thoroughly discussed the patient was understanding and agreeable. Case discussed with physician. Disposition Clinical Impression: Acute anxiety Disposition: HOME SELF-CARE Condition: Stable Instructions (If sedation given, give patient instructions): Generalized Anxiety Disorder (ED) Additional Instructions: Please follow up with primary care or psychiatry. Please return to emergency department if symptoms worsen. Is patient prescribed a controlled substance at d/c from ED?: No Referrals: Claudette Camp DO [Primary Care Provider] - 1-2 days Time of Disposition: 10:56
== END 2019-04-08 11:07 | disposition home or self-care (01) ==
LOC: EC 10:24
DX: F41.9 Anxiety disorder, unspecified (principal); F17.200 Nicotine dependence, unspecified, uncomplicated; Z79.899 Other long term (current) drug therapy; Z88.5 Allergy status to narcotic agent; Z91.030 Bee allergy status; Z98.2 Presence of cerebrospinal fluid drainage device; Z86.73 Personal history of transient ischemic attack (TIA), and cerebral infarction without residual deficits
CPT/HCPCS: 99282

== ENCOUNTER 2019-10-21 20:28 | Emergency (ER) | payer BC ==
[2019-10-21 21:23] VITALS: RESP 18
[2019-10-21 22:39] LABS: Basophils % (A) 0 %; Eosinophils # (A) 0.4 k/uL (0-0.7); Eosinophils % (A) 5 %; HCT 35.3 % (39.0-53.0); HGB 11.9 gm/dL (13.0-17.5); Lymphocytes # (A) 2.7 k/uL (1.0-4.8); Lymphocytes % (A) 37 %; MCH 29.4 pg (25.0-35.0); MCHC 33.7 g/dL (31.0-37.0); MCV 87.3 fL (80.0-100.0); Mean Platelet Volume 7.6; Monocytes # (A) 0.4 k/uL (0-1.0); Monocytes % (A) 6 %; Neutrophils # (A) 3.7 k/uL (1.3-7.7); Neutrophils % (A) 51 %; Platelet Count 249 k/uL (150-450); RBC 4.05 m/uL (4.30-5.90); RDW 14.2 % (11.5-15.5); WBC 7.3 k/uL (3.8-10.6)
[2019-10-21 22:44] LABS: ALT 21 U/L (4-49); AST 37 U/L (17-59); African American GFR (CKD) >90 (>60 ml/min/1.73 sqM); Albumin 3.9 g/dL (3.5-5.0); Alkaline Phosphatase 70 U/L (38-126); Anion Gap 4 mmol/L; Blood Urea Nitrogen 4 mg/dL (9-20); Calcium 9.1 mg/dL (8.4-10.2); Carbon Dioxide 31 mmol/L (22-30); Chloride 105 mmol/L (98-107); Glucose 96 mg/dL (74-99); Non-African American GFR(CKD) >90 (>60 ml/min/1.73 sqM); Potassium 3.8 mmol/L (3.5-5.1); Sodium 140 mmol/L (137-145); Total Bilirubin 0.5 mg/dL (0.2-1.3); Total Protein 6.7 g/dL (6.3-8.2)
--- NOTE | 2019-10-21 22:49 | ED ---
Extremity Problem HPI - General Chief complaint: Extremity Problem,Nontraumatic Stated complaint: Swollen Legs Time Seen by Provider: 10/21/19 21:47 Source: patient Mode of arrival: ambulatory Limitations: no limitations - History of Present Illness Initial comments: This patient is a 49-year-old man who does have history of hypertension, who presents with complaint that when he woke up this morning he noticed that there was swelling of the bilateral lower extremities. The patient states that he has had this occasionally in the past and his physician is given him diuretic and the symptoms have resolved. He is denying any systemic complaints, including no fever or chills. No chest pain, dyspnea, cough, abdominal pain, nausea or vomiting. No change in urination or bowel movements. Patient denies pain in the legs. MD Complaint: extremity swelling Onset/Timin -: hour(s) Location: bilateral lower extremity History of Same: Yes Radiation: none Severity scale (1-10): 0 Quality: other (No pain) Consistency: constant Improves with: nothing Worsens with: nothing Associated Symptoms: denies other symptoms - Related Data Home Medications Medication Instructions Recorded Confirmed Citalopram Hydrobromide [CeleXA] 40 mg PO DAILY 04/08/19 04/08/19 Ibuprofen [Motrin Ib] 800 mg PO Q6H PRN 04/08/19 04/08/19 Lisinopril [Zestril] 20 mg PO DAILY 04/08/19 04/08/19 Previous Rx's Medication Instructions Recorded Furosemide [Lasix] 20 mg PO DAILY #3 tab 10/22/19 Allergies Allergy/AdvReac Type Severity Reaction Status Date / Time venom-honey bee Allergy Rash/Hives Verified 04/08/19 10:25 [bee venom (honey bee)] oxycodone AdvReac Itching Verified 04/08/19 10:39 Review of Systems ROS Statement: Those systems with pertinent positive or pertinent negative responses have been documented in the HPI. ROS Other: All systems not noted in ROS Statement are negative. Constitutional: Denies: fever, chills Respiratory: Denies: cough, dyspnea, hemoptysis Cardiovascular: Reports: as per HPI, edema. Denies: chest pain, palpitations, orthopnea Gastrointestinal: Denies: abdominal pain, vomiting, diarrhea, melena, hematochezia Genitourinary: Denies: dysuria, frequency, hematuria, testicular mass Musculoskeletal: Denies: back pain Skin: Denies: rash Neurological: Denies: headache, weakness, numbness, paresthesias Past Medical History Past Medical History: CVA/TIA, Fibromyalgia, Hypertension, Musculoskeletal Disorder, Rheumatoid Arthritis (RA) Additional Past Medical History / Comment(s): MIGRAINES, COLITIS, ANKYLOSING SPONDYLITIS, BACK PAIN. History of Any Multi-Drug Resistant Organisms: C-DIFF Date of last positivie culture/infection: 2013 MDRO Source:: colitis Past Surgical History: Cholecystectomy, Orthopedic Surgery Additional Past Surgical History / Comment(s): neck sx CERVICAL FUSION C-4-5-6 &7. lumbar fusion L4 and L5 Past Anesthesia/Blood Transfusion Reactions: No Reported Reaction Past Psychological History: Anxiety Smoking Status: Current every day smoker Past Alcohol Use History: None Reported Past Drug Use History: None Reported General Exam Limitations: no limitations General appearance: alert, in no apparent distress Head exam: Present: atraumatic, normocephalic Eye exam: Present: normal appearance. Absent: scleral icterus, conjunctival injection ENT exam: Present: normal oropharynx Neck exam: Present: normal inspection Respiratory exam: Present: normal lung sounds bilaterally. Absent: respiratory distress, wheezes, rales, rhonchi, stridor Cardiovascular Exam: Present: regular rate, normal rhythm, normal heart sounds. Absent: systolic murmur, diastolic murmur, rubs, gallop GI/Abdominal exam: Present: soft. Absent: distended, tenderness, guarding, rebound, organomegaly, mass Extremities exam: Present: normal inspection, normal capillary refill, pedal edema (There is symmetric bilateral leg edema to the mid pretibial area. No erythema or warmth. No evidence of infection.). Absent: calf tenderness Back exam: Present: normal inspection. Absent: CVA tenderness (R), CVA tenderness (L) Neurological exam: Present: alert Skin exam: Present: warm, dry, intact, normal color. Absent: rash Course Vital Signs 10/21/19 10/22/19 21:17 00:11 Temperature 97.8 F 97.9 F Pulse Rate 72 71 Respiratory 18 18 Rate Blood Pressure 175/89 162/89 O2 Sat by Pulse 99 98 Oximetry Medical Decision Making - Lab Data Result diagrams: 10/21/19 22:26 02/18/20 22:26 Lab Results 10/21/19 10/21/19 10/21/19 Range/Units 22:26 22:26 22:26 WBC 7.3 (3.8-10.6) k/uL RBC 4.05 L (4.30-5.90) m/uL Hgb 11.9 L (13.0-17.5) gm/dL Hct 35.3 L (39.0-53.0) % MCV 87.3 (80.0-100.0) fL MCH 29.4 (25.0-35.0) pg MCHC 33.7 (31.0-37.0) g/dL RDW 14.2 (11.5-15.5) % Plt Count 249 (150-450) k/uL Neutrophils % 51 % Lymphocytes % 37 % Monocytes % 6 % Eosinophils % 5 % Basophils % 0 % Neutrophils # 3.7 (1.3-7.7) k/uL Lymphocytes # 2.7 (1.0-4.8) k/uL Monocytes # 0.4 (0-1.0) k/uL Eosinophils # 0.4 (0-0.7) k/uL Basophils # 0.0 (0-0.2) k/uL D-Dimer (<0.60) mg/L FEU Sodium 140 (137-145) mmol/L Potassium 3.8 (3.5-5.1) mmol/L Chloride 105 (98-107) mmol/L Carbon Dioxide 31 H (22-30) mmol/L Anion Gap 4 mmol/L BUN 4 L (9-20) mg/dL Creatinine 0.74 (0.66-1.25) mg/dL Est GFR (CKD-EPI)AfAm >90 (>60 ml/min/1.73 sqM) Est GFR (CKD-EPI)NonAf >90 (>60 ml/min/1.73 sqM) Glucose 96 (74-99) mg/dL Calcium 9.1 (8.4-10.2) mg/dL Total Bilirubin 0.5 (0.2-1.3) mg/dL AST 37 (17-59) U/L ALT 21 (4-49) U/L Alkaline Phosphatase 70 (38-126) U/L NT-Pro-B Natriuret Pep 111 pg/mL Total Protein 6.7 (6.3-8.2) g/dL Albumin 3.9 (3.5-5.0) g/dL Urine Color Urine Appearance (Clear) Urine pH (5.0-8.0) Ur Specific [place] (1.001-1.035) Urine Protein (Negative) Urine Glucose (UA) (Negative) Urine Ketones (Negative) Urine Blood (Negative) Urine Nitrite (Negative) Urine Bilirubin (Negative) Urine Urobilinogen (<2.0) mg/dL Ur Leukocyte Esterase (Negative) 10/21/19 10/21/19 Range/Units 22:26 23:21 WBC (3.8-10.6) k/uL RBC (4.30-5.90) m/uL Hgb (13.0-17.5) gm/dL Hct (39.0-53.0) % MCV (80.0-100.0) fL MCH (25.0-35.0) pg MCHC (31.0-37.0) g/dL RDW (11.5-15.5) % Plt Count (150-450) k/uL Neutrophils % % Lymphocytes % % Monocytes % % Eosinophils % % Basophils % % Neutrophils # (1.3-7.7) k/uL Lymphocytes # (1.0-4.8) k/uL Monocytes # (0-1.0) k/uL Eosinophils # (0-0.7) k/uL Basophils # (0-0.2) k/uL D-Dimer 0.88 H (<0.60) mg/L FEU Sodium (137-145) mmol/L Potassium (3.5-5.1) mmol/L Chloride (98-107) mmol/L Carbon Dioxide (22-30) mmol/L Anion Gap mmol/L BUN (9-20) mg/dL Creatinine (0.66-1.25) mg/dL Est GFR (CKD-EPI)AfAm (>60 ml/min/1.73 sqM) Est GFR (CKD-EPI)NonAf (>60 ml/min/1.73 sqM) Glucose (74-99) mg/dL Calcium (8.4-10.2) mg/dL Total Bilirubin (0.2-1.3) mg/dL AST (17-59) U/L ALT (4-49) U/L Alkaline Phosphatase (38-126) U/L NT-Pro-B Natriuret Pep pg/mL Total Protein (6.3-8.2) g/dL Albumin (3.5-5.0) g/dL Urine Color Light Yellow Urine Appearance Clear (Clear) Urine pH 6.0 (5.0-8.0) Ur Specific [place] 1.010 (1.001-1.035) Urine Protein Negative (Negative) Urine Glucose (UA) Negative (Negative) Urine Ketones Negative (Negative) Urine Blood Negative (Negative) Urine Nitrite Negative (Negative) Urine Bilirubin Negative (Negative) Urine Urobilinogen <2.0 (<2.0) mg/dL Ur Leukocyte Esterase Negative (Negative) Disposition Clinical Impression: Leg edema Disposition: HOME SELF-CARE Condition: Good Instructions (If sedation given, give patient instructions): Leg Edema (ED) Prescriptions: Furosemide [Lasix] 20 mg PO DAILY #3 tab Is patient prescribed a controlled substance at d/c from ED?: No Referrals: Claudette Camp DO [Primary Care Provider] - 1-2 days
[2019-10-21 23:55] LABS: Appearance,Urine Clear (Clear); Color,Urine Light Yellow
[2019-10-21 23:56] LABS: Bilirubin,Urine Negative (Negative); Blood,Urine Negative (Negative); Glucose,Urine (UA) Negative (Negative); Ketones,Urine Negative (Negative); Leukocyte Esterase,Urine Negative (Negative); Nitrite,Urine Negative (Negative); Protein,Urine Negative (Negative); Urobilinogen,Urine <2.0 mg/dL (<2.0)
[2019-10-22 00:12] VITALS: BP 162/89; PULSE 71; TEMP 97.9
--- NOTE | 2019-10-22 00:30 | US ---
EXAMINATION TYPE: US venous doppler duplex LE DATE OF EXAM: 10/22/2019 12:03 AM COMPARISON: NONE CLINICAL HISTORY: Leg edema, R/O DVT. Leg edema x 1 day. R/O DVT. No hx of DVT. Patient is not on blo od thinners. SIDE PERFORMED: Bilateral TECHNIQUE: The lower extremity deep venous system is examined utilizing real time linear array sonog lidia with graded compression, doppler sonography and color-flow sonography. VESSELS IMAGED: External Iliac Vein (EIV) Common Femoral Vein Deep Femoral Vein Greater Saphenous Vein * Femoral Vein Popliteal Vein Small Saphenous Vein * Proximal Calf Veins (* superficial vessels) Right Leg: No evidence of DVT in veins imaged at this time from prox calf veins to EIV. Hypoechoic a telly with hyperechoic center seen right groin: 3.2 x 2.5 x 0.9 cm. Left Leg: No evidence of DVT in veins imaged at this time from prox calf veins to EIV. Hypoechoic ar ea with hyperechoic center seen left groin: 3.3 x 2.5 x 0.8 cm. IMPRESSION: No evidence of deep vein thrombosis in both legs. Prominent bilateral inguinal lymph nodes evident.
[2019-10-22] MEDS ORDERED: FUROSEMIDE 10 MG/ML 2 ML VIAL IV STA (00:31)
[2019-10-22] MEDS ORDERED: FUROSEMIDE 20 MG TAB PO ONE (01:00)
== END 2019-10-22 00:52 | disposition home or self-care (01) ==
LOC: EC 20:28
DX: R60.0 Localized edema (principal); I10 Essential (primary) hypertension; M06.9 Rheumatoid arthritis, unspecified; F41.9 Anxiety disorder, unspecified; F17.200 Nicotine dependence, unspecified, uncomplicated; Z88.5 Allergy status to narcotic agent; Z91.030 Bee allergy status; Z79.1 Long term (current) use of non-steroidal anti-inflammatories (NSAID); Z79.899 Other long term (current) drug therapy; Z86.69 Personal history of other diseases of the nervous system and sense organs; Z98.1 Arthrodesis status
CPT/HCPCS: 36415; 80053; 81003; 83880; 85025; 85379; 93970; 99283

== ENCOUNTER 2021-05-22 20:13 | Emergency (ER) | payer MEDICARE, BC ==
[2021-05-22 20:51] VITALS: BP 150/96; PULSE 84; RESP 19; TEMP 98.3
[2021-05-22] MEDS ORDERED: MORPHINE SULFATE 4 MG/ML SYRINGE IM STA (21:09)
[2021-05-22] MEDS ORDERED: traMADol 50 MG STARTER PACK 3 TAB BTL PO STA (21:51)
--- NOTE | 2021-05-22 21:51 | ED ---
Recheck HPI - General Chief Complaint: Recheck/Abnormal Lab/Rx Stated Complaint: morphine pump problems Time Seen by Provider: 05/22/21 20:52 Source: patient, RN notes reviewed Mode of arrival: ambulatory - History of Present Illness Initial Comments: Patient is a 50-year-old male that presents to the emergency department complaining of his morphine pump not working. He notes he has a follow-up plan with his specialist tomorrow but just needs something to get him through the night. He denied any other issues or complaints at this time. He is otherwise a well-appearing 50-year-old male in no apparent distress or pain. He denied any chest pain shortness of breath headache nausea vomiting diarrhea constipation fever fatigue chills. - Related Data Home Medications Medication Instructions Recorded Confirmed Citalopram Hydrobromide [CeleXA] 40 mg PO DAILY 04/08/19 04/08/19 Ibuprofen [Motrin Ib] 800 mg PO Q6H PRN 04/08/19 04/08/19 lisinopriL [Zestril] 20 mg PO DAILY 04/08/19 04/08/19 Previous Rx's Medication Instructions Recorded Furosemide [Lasix] 20 mg PO DAILY #3 tab 10/22/19 Allergies Allergy/AdvReac Type Severity Reaction Status Date / Time acetaminophen Allergy Rash/Hives Verified 05/22/21 20:51 [From Darvocet-N] propoxyphene Allergy Rash/Hives Verified 05/22/21 20:51 [From Darvocet-N] venom-honey bee Allergy Rash/Hives Verified 04/08/19 10:25 [bee venom (honey bee)] Review of Systems ROS Statement: Those systems with pertinent positive or pertinent negative responses have been documented in the HPI. ROS Other: All systems not noted in ROS Statement are negative. Past Medical History Past Medical History: CVA/TIA, Fibromyalgia, Hypertension, Musculoskeletal Disorder, Rheumatoid Arthritis (RA) Additional Past Medical History / Comment(s): MIGRAINES, COLITIS, ANKYLOSING SPONDYLITIS, BACK PAIN. History of Any Multi-Drug Resistant Organisms: C-DIFF Date of last positivie culture/infection: 2013 MDRO Source:: colitis Past Surgical History: Cholecystectomy, Orthopedic Surgery Additional Past Surgical History / Comment(s): neck sx CERVICAL FUSION C-4-5-6 &7. lumbar fusion L4 and L5 Past Anesthesia/Blood Transfusion Reactions: No Reported Reaction Past Psychological History: Anxiety Smoking Status: Never smoker Past Alcohol Use History: None Reported Past Drug Use History: None Reported General Exam General appearance: alert, in no apparent distress Head exam: Present: atraumatic, normocephalic, normal inspection Eye exam: Present: normal appearance, PERRL, EOMI. Absent: scleral icterus, conjunctival injection, periorbital swelling Neck exam: Present: normal inspection Respiratory exam: Present: normal lung sounds bilaterally. Absent: respiratory distress, wheezes, rales, rhonchi, stridor Cardiovascular Exam: Present: regular rate, normal rhythm, normal heart sounds. Absent: systolic murmur, diastolic murmur, rubs, gallop, clicks GI/Abdominal exam: Present: soft, normal bowel sounds. Absent: distended, tenderness, guarding, rebound, rigid Extremities exam: Present: normal inspection, full ROM, normal capillary refill. Absent: tenderness, pedal edema, joint swelling, calf tenderness Neurological exam: Present: alert, oriented X3 Psychiatric exam: Present: normal affect, normal mood Skin exam: Present: warm, dry, intact, normal color, other (Pain pump location no signs or symptoms of infection.). Absent: rash Course Vital Signs 05/22/21 20:47 Temperature 98.3 F Pulse Rate 84 Respiratory 19 Rate Blood Pressure 150/96 O2 Sat by Pulse 98 Oximetry Medical Decision Making - Medical Decision Making 50-year-old male needing pain management to get into the day until his follow-up with his pain medicine doctor tomorrow. 4 mg of morphine ordered. Case discussed with Dr. Julien, patient can discharge home. Disposition Clinical Impression: Chronic pain Disposition: HOME SELF-CARE Condition: Stable Instructions (If sedation given, give patient instructions): Chronic Pain (ED) Additional Instructions: Please return to the Emergency Department if symptoms worsen or any other concerns. Is patient prescribed a controlled substance at d/c from ED?: No Referrals: Claudette Camp DO [Primary Care Provider] - 1-2 days Time of Disposition: 21:51
== END 2021-05-22 21:57 | disposition home or self-care (01) ==
LOC: EC 20:13
DX: T85.698A Other mechanical complication of other specified internal prosthetic devices, implants and grafts, initial encounter (principal); G89.29 Other chronic pain; I10 Essential (primary) hypertension; F41.9 Anxiety disorder, unspecified; Z88.6 Allergy status to analgesic agent; Z86.73 Personal history of transient ischemic attack (TIA), and cerebral infarction without residual deficits; Z90.49 Acquired absence of other specified parts of digestive tract; Y82.9 Unspecified medical devices associated with adverse incidents
CPT/HCPCS: 99283; 96372; J2270

== ENCOUNTER 2024-08-20 18:52 | Emergency (ER) | payer BC, MEDICARE ==
--- NOTE | 2024-08-20 19:35 | ED ---
Chest Pain HPI - General Chief Complaint: Chest Pain Stated Complaint: chest pain Time Seen by Provider: 08/20/24 19:00 Source: patient, EMS, RN notes reviewed, old records reviewed Mode of arrival: EMS Limitations: no limitations - History of Present Illness Initial Comments: This is a 54-year-old male to the ER for evaluation of chest pain chest pain and at home high blood pressure. Patient has history of chronic pain issues with ankylosing spondylosis has a pain pump does not currently take pain medication has no history of high blood pressure and has elevated blood pressure on arrival. Patient has active reflux symptoms all day which he is ran out of his antiacid 2 days ago. Patient also has left-sided chest pain MD Complaint: chest pain -: hour(s) Onset: during rest Pain Location: substernal, left chest Pain Radiation: none Severity: moderate Severity scale (1-10): 4 Quality: tightness Consistency: constant Improves With: nothing Worsens With: nothing Treatments Prior to Arrival: none - Related Data On Oral Contraceptives: Yes Home Medications Medication Instructions Recorded Confirmed ALPRAZolam [Xanax] 1 mg PO QID@,,,08/20/24 08/23/24 Atorvastatin [Lipitor] 40 mg PO DAILY 08/20/24 08/23/24 Patient Own Pump 0 bag 08/20/24 Pregabalin [Lyrica] 225 mg PO TID 08/20/24 08/23/24 Tamsulosin HCl [Flomax] 0.4 mg PO DAILY 08/20/24 08/23/24 Previous Rx's Medication Instructions Recorded Aspirin 81 mg PO DAILY 30 Days #30 tab 08/23/24 Losartan [Cozaar] 25 mg PO DAILY 30 Days #30 tab 08/23/24 amLODIPine [Norvasc] 5 mg PO DAILY 30 Days #30 tab 08/23/24 Allergies Allergy/AdvReac Type Severity Reaction Status Date / Time acetaminophen Allergy Rash/Hives Verified 08/23/24 08:20 [From Darvocet-N] propoxyphene Allergy Rash/Hives Verified 08/23/24 08:20 [From Darvocet-N] venom-honey bee Allergy Rash/Hives Verified 08/23/24 08:20 [bee venom (honey bee)] Review of Systems ROS Statement: Those systems with pertinent positive or pertinent negative responses have been documented in the HPI. ROS Other: All systems not noted in ROS Statement are negative. EKG Findings - EKG Comments: EKG Findings:: EKG is sinus 63 FL 173 QRS 97 QTc 416 - EKG Results: EKG: interpreted by KYM Past Medical History Past Medical History: CVA/TIA, Fibromyalgia, Hypertension, Musculoskeletal Disorder, Rheumatoid Arthritis (RA) Additional Past Medical History / Comment(s): MIGRAINES, COLITIS, ANKYLOSING SPONDYLITIS, BACK PAIN. History of Any Multi-Drug Resistant Organisms: C-DIFF Date of last positivie culture/infection: 2013 MDRO Source:: colitis Past Surgical History: Cholecystectomy, Orthopedic Surgery Additional Past Surgical History / Comment(s): neck sx CERVICAL FUSION C-4-5-6 &7. lumbar fusion L4 and L5 Past Anesthesia/Blood Transfusion Reactions: No Reported Reaction Past Psychological History: Anxiety Smoking Status: Never smoker Past Alcohol Use History: None Reported Past Drug Use History: None Reported General Exam General appearance: alert, in no apparent distress Head exam: Present: atraumatic, normocephalic, normal inspection Eye exam: Present: normal appearance, PERRL, EOMI. Absent: scleral icterus, conjunctival injection, periorbital swelling ENT exam: Present: normal exam, mucous membranes moist Neck exam: Present: normal inspection. Absent: tenderness, meningismus, lymphadenopathy Respiratory exam: Present: normal lung sounds bilaterally. Absent: respiratory distress, wheezes, rales, rhonchi, stridor Cardiovascular Exam: Present: regular rate, normal rhythm, normal heart sounds. Absent: systolic murmur, diastolic murmur, rubs, gallop, clicks GI/Abdominal exam: Present: soft, normal bowel sounds. Absent: distended, tenderness, guarding, rebound, rigid Extremities exam: Present: normal inspection, full ROM, normal capillary refill. Absent: tenderness, pedal edema, joint swelling, calf tenderness Back exam: Present: normal inspection Neurological exam: Present: alert, oriented X3, CN II-XII intact Psychiatric exam: Present: normal affect, normal mood Skin exam: Present: warm, dry, intact, normal color. Absent: rash Course Vital Signs 08/20/24 08/20/24 08/20/24 18:54 19:58 21:08 Temperature 98.6 F Pulse Rate 75 62 58 L Respiratory 20 16 16 Rate Blood Pressure 180/109 148/92 131/75 O2 Sat by Pulse 98 96 99 Oximetry 08/20/24 21:30 Temperature Pulse Rate 68 Respiratory 18 Rate Blood Pressure 131/75 O2 Sat by Pulse 98 Oximetry - Reevaluation(s) Reevaluation #1: 08/20/24 19:13 Records reviewed Reevaluation #2: 08/20/24 20:32 Chest pain blood pressure improved here in the ER Reevaluation #3: 08/20/24 20:32 Informed of results and questions answered Reevaluation #4: Was pt. sent in by a medical professional or institution (, TANNER, PICTURES EDITOR, urgent care, hospital, or skilled nursing...) When possible be specific @ -no Did you speak to anyone other than the patient for history (EMS, parent, family, police, friend...)? What history was obtained from this source @ -no Did you review nursing and triage notes (agree or disagree)? Why? @ -agree Are old charts reviewed (outside hosp., previous admission, EMS record, old EKG, old radiological studies, urgent care reports/EKG's, skilled nursing records)? Report findings @ -yes Differential Diagnosis (chest pain, altered mental status, abdominal pain women, abdominal pain men, vaginal bleeding, weakness, fever, dyspnea, syncope, headache, dizziness, GI bleed, back pain, seizure, CVA, palpatations, mental health, musculoskeletal)? @ -prior EKG interpreted by me (3pts min.). @ -yes X-rays interpreted by me (1pt min.). @ -no CT interpreted by me (1pt min.). @ -yes negative for acute disease U/S interpreted by me (1pt. min.). @ -no What testing was considered but not performed or refused? (CT, X-rays, U/S, labs)? Why? @ -none What meds were considered but not given or refused? Why? @ -none Did you discuss the management of the patient with other professionals (professionals i.e. TANNER Boykin, PICTURES EDITOR, lab, RT, psych nurse, 7th grade social studies teacher, class a lineman, teacher, boating safety officer, caser shoe parts)? Give summary @ -no Was smoking cessation discussed for >3mins.? @ -no Was critical care preformed (if so, how long)? @ -no Were there social determinants of health that impacted care today? How? (Homelessness, low income, unemployed, alcoholism, drug addiction, transportation, low edu. Level, literacy, decrease access to med. care, [facility], rehab)? @ -none Was there de-escalation of care discussed even if they declined (Discuss DNR or withdrawal of care, Hospice)? DNR status @ -no What co-morbidities impacted this encounter? (DM, HTN, Smoking, COPD, CAD, Cancer, CVA, ARF, Chemo, Hep., AIDS, mental health diagnosis, sleep apnea, m orbid obesity)? @ -none Was patient admitted / discharged? Hospital course, mention meds given and route, prescriptions, significant lab abnormalities, going to OR and other pertinent info. @ - 54 male to ER for hypertension history of prescription drug abuse. Patient has severe high blood pressure on arrival to the ER with persistent chest pain Discharge Undiagnosed new problem with uncertain prognosis? @ -no Drug Therapy requiring intensive monitoring for toxicity (Heparin, Nitro, Insulin, Cardizem)? @ -no Were any procedures done? @ -no Diagnosis/symptom? @ -Hypertension and chest pain Acute, or Chronic, or Acute on Chronic? @ -Acute Uncomplicated (without systemic symptoms) or Complicated (systemic symptoms)? @ -Complicated Side effects of treatment? @ -no Exacerbation, Progression, or Severe Exacerbation? @ -exacerbation Poses a threat to life or bodily function? How? (Chest pain, [place], [place], pneumonia, PE, COPD, DKA, ARF, appy, cholecystitis, CVA, Diverticulitis, Homicidal, Suicidal, threat to staff... and all critical care pts) @ -yes hypertension and chest pain Reevaluation #5: Differential Chest Pain: Stable Angina, Unstable Angina, STEMI, NSTEMI Aortic Dissection, Pneumothorax, Musculoskeletal, Esophageal Spasm GERD, Cholecystitis, Pancreatitis, Zoster, this is not meant to be an all-inclusive list. Chest Pain MDM - MDM 54 male to ER for hypertension history of prescription drug abuse. Patient has severe high blood pressure on arrival to the ER with persistent chest pain Disposition Clinical Impression: Atypical chest pain, Chest pain, Hypertension, Chronic pain Disposition: HOME SELF-CARE Condition: Good Instructions (If sedation given, give patient instructions): Chest Pain (ED) Is patient prescribed a controlled substance at d/c from ED?: No Referrals: Alejandra Heaton DO [Primary Care Provider] - 1-2 days Time of Disposition: 21:20
[2024-08-20 19:36] VITALS: TEMP 98.6
[2024-08-20 19:44] LABS: Basophils % (A) 0 %; Eosinophils # (A) 0.3 k/uL (0-0.7); Eosinophils % (A) 3 %; HCT 39.5 % (39.0-53.0); HGB 13.5 gm/dL (13.0-17.5); Lymphocytes # (A) 2.2 k/uL (1.0-4.8); Lymphocytes % (A) 27 %; MCH 29.6 pg (25.0-35.0); MCHC 34.1 g/dL (31.0-37.0); MCV 86.7 fL (80.0-100.0); Mean Platelet Volume 7.7; Monocytes # (A) 0.5 k/uL (0-1.0); Monocytes % (A) 6 %; Neutrophils # (A) 5.1 k/uL (1.3-7.7); Neutrophils % (A) 62 %; Platelet Count 267 k/uL (150-450); RBC 4.55 m/uL (4.30-5.90); RDW 13.8 % (11.5-15.5); WBC 8.2 k/uL (3.8-10.6)
[2024-08-20 19:49] LABS: ALT 50 U/L (4-49); AST 46 U/L (17-59); African American GFR (CKD) >90 (>60 ml/min/1.73 sqM); Albumin 4.9 g/dL (3.5-5.0); Alkaline Phosphatase 82 U/L (38-126); Anion Gap 10 mmol/L; Blood Urea Nitrogen 6 mg/dL (9-20); Carbon Dioxide 28 mmol/L (22-30); Chloride 103 mmol/L (98-107); Glucose 113 mg/dL (74-99); Lipase 106 U/L (23-300); Magnesium 1.9 mg/dL (1.6-2.3); Non-African American GFR(CKD) >90 (>60 ml/min/1.73 sqM); Potassium 3.7 mmol/L (3.5-5.1); Sodium 141 mmol/L (137-145); Total Bilirubin 0.8 mg/dL (0.2-1.3); Total Protein 7.9 g/dL (6.3-8.2)
[2024-08-20] MEDS: MORPHINE SULFATE 4 MG/ML SYRINGE IV STA (19:51)
[2024-08-20] MEDS: LORazepam 2 MG/ML INJ IV STA (19:56)
[2024-08-20] MEDS: SODIUM CHLORIDE 0.9% 1,000 ML IV STA (19:56)
[2024-08-20 19:58] LABS: NT-Pro-B-Type Natriuretic Pept 27 pg/mL
[2024-08-20 20:08] LABS: Partial Thromboplastin Time 27.9 sec (22.0-30.0); Prothrombin Time 10.7 sec (10.0-12.5)
--- NOTE | 2024-08-20 20:57 | CT ---
EXAMINATION TYPE: CT angio chest DATE OF EXAM: 08/20/2024 8:43 PM COMPARISON: None. CLINICAL INDICATION: Male, 54 years old with history of cp, CP and HTN., TECHNIQUE: Axial CT was performed with sagittal and coronal reformats. 3D reconstruction and/or MIP imaging was also performed on a separate workstation. IV CONTRAST: with IV Contrast, patient injected with 100 ml mL of Isovue 370. (None if empty) CT DLP: 721.8 mGycm, Automated exposure control for dose reduction was used. FINDINGS: PULMONARY ARTERIES: The pulmonary arteries and their major tributaries are patent. I do not see jono dence for sizable filling defect to suggest pulmonary embolic process. LUNGS: The lungs are clear and free of infiltrate. No evidence for atelectasis. No pulmonary nodule or mass is detected. No pleural effusion. MEDIASTINUM: Thoracic aorta is of normal caliber,however, evaluation is limited given timing of the contrast bolus. If there is concern for thoracic aortic pathology consider JORDIN. Correlate clinicall y . The heart is not enlarged. No evidence for mediastinal mass. No mediastinal lymph nodes greater than 1cm. HILAR STRUCTURES: No evidence for mass. No hilar lymph nodes greater than 1 cm. UPPER ABDOMEN: No significant abnormality is seen. IMPRESSION: 1. No evidence for Pulmonary embolism at this time. [facility], , 08/20/2024 8:54 PM
[2024-08-20 21:10] VITALS: BP 131/75
[2024-08-20] MEDS: LORazepam 1 MG TAB PO STA (21:26)
[2024-08-20 21:31] VITALS: PULSE 68; RESP 18
== END 2024-08-20 21:34 | disposition home or self-care (01) ==
LOC: EC 18:52
DX: G89.29 Other chronic pain (principal); R07.89 Other chest pain; I10 Essential (primary) hypertension; Z91.030 Bee allergy status; Z88.8 Allergy status to other drugs, medicaments and biological substances; Z79.899 Other long term (current) drug therapy; Z79.82 Long term (current) use of aspirin; Z86.73 Personal history of transient ischemic attack (TIA), and cerebral infarction without residual deficits
CPT/HCPCS: 36415; 93005; 85379; 83880; 80053; 83690; 83735; 84484; 85025; 85610; 85730; 71275; 99285; 96374; 96361; J2060; Q9967

== ENCOUNTER 2024-08-23 00:52 | Observation (INO) | payer MEDICARE ==
--- NOTE | 2024-08-23 01:12 | ED ---
General Adult HPI - General Chief complaint: Recheck/Abnormal Lab/Rx Stated complaint: Hypertension Time Seen by Provider: 08/23/24 01:02 Source: patient, EMS, RN notes reviewed Mode of arrival: EMS - History of Present Illness Initial comments: This is a 54-year-old male with a history of ankylosing spondylitis with intrathecal pain pump, TIA, and hypertension not on medication presenting to the emergency department for complaint of headache and hypertension. Patient states that approximately 2 hours before he went to bed he states he began to experience a headache when he took Tylenol to alleviate symptoms. Checked his blood pressure at home with his cough that was elevated in the 200s over 110s. He denies dizziness, blurry vision, focal neurological deficits, chest pain, shortness of breath, difficulty breathing. Patient states that he was originally on atenolol for hypertension however has been off this medication for a while. Current smoker. - Related Data Home Medications Medication Instructions Recorded Confirmed ALPRAZolam [Xanax] 1 mg PO QID@,,,08/20/24 08/23/24 Atorvastatin [Lipitor] 40 mg PO DAILY 08/20/24 08/23/24 Patient Own Pump 0 bag 08/20/24 Pregabalin [Lyrica] 225 mg PO TID 08/20/24 08/23/24 Tamsulosin HCl [Flomax] 0.4 mg PO DAILY 08/20/24 08/23/24 Allergies Allergy/AdvReac Type Severity Reaction Status Date / Time acetaminophen Allergy Rash/Hives Verified 08/23/24 08:20 [From Darvocet-N] propoxyphene Allergy Rash/Hives Verified 08/23/24 08:20 [From Darvocet-N] venom-honey bee Allergy Rash/Hives Verified 08/23/24 08:20 [bee venom (honey bee)] Review of Systems ROS Statement: Those systems with pertinent positive or pertinent negative responses have been documented in the HPI. ROS Other: All systems not noted in ROS Statement are negative. Past Medical History Past Medical History: CVA/TIA, Fibromyalgia, Hypertension, Musculoskeletal Disorder, Rheumatoid Arthritis (RA) Additional Past Medical History / Comment(s): MIGRAINES, COLITIS, ANKYLOSING SPONDYLITIS, BACK PAIN. History of Any Multi-Drug Resistant Organisms: C-DIFF Date of last positivie culture/infection: 2014 MDRO Source:: colitis Past Surgical History: Cholecystectomy, Orthopedic Surgery Additional Past Surgical History / Comment(s): neck sx CERVICAL FUSION C-4-5-6 &7. lumbar fusion L4 and L5 Past Anesthesia/Blood Transfusion Reactions: No Reported Reaction Past Psychological History: Anxiety Smoking Status: Never smoker Past Alcohol Use History: None Reported Past Drug Use History: None Reported - Past Family History Father Family Medical History: Hypertension General Exam General appearance: alert, in no apparent distress Eye exam: Present: normal appearance, PERRL, EOMI. Absent: scleral icterus, conjunctival injection, periorbital swelling Neck exam: Present: normal inspection. Absent: tenderness, meningismus, lymphadenopathy Respiratory exam: Present: normal lung sounds bilaterally. Absent: respiratory distress, wheezes, rales, rhonchi, stridor Cardiovascular Exam: Present: regular rate, normal rhythm, normal heart sounds. Absent: systolic murmur, diastolic murmur, rubs, gallop, clicks GI/Abdominal exam: Present: soft, normal bowel sounds. Absent: distended, tenderness, guarding, rebound, rigid Extremities exam: Present: normal inspection, full ROM, normal capillary refill. Absent: tenderness, pedal edema, joint swelling, calf tenderness Back exam: Present: normal inspection Course Vital Signs 08/23/24 08/23/24 08/23/24 00:54 01:10 01:40 Temperature 98.7 F Pulse Rate 64 61 56 L Respiratory 15 14 19 Rate Blood Pressure 181/112 173/101 177/93 O2 Sat by Pulse 99 100 98 Oximetry 08/23/24 08/23/24 08/23/24 02:10 02:40 05:00 Temperature Pulse Rate 58 L 54 L 54 L Respiratory 20 16 17 Rate Blood Pressure 167/98 174/96 173/95 O2 Sat by Pulse 97 98 98 Oximetry 08/23/24 08/23/24 08/23/24 05:56 06:37 07:30 Temperature 98.4 F Pulse Rate 50 L 49 L Respiratory 16 18 Rate Blood Pressure 170/99 165/97 O2 Sat by Pulse 96 97 Oximetry 08/23/24 08/23/24 08/23/24 10:00 10:30 11:00 Temperature Pulse Rate 50 L 46 L 47 L Respiratory 19 16 17 Rate Blood Pressure 181/97 165/103 165/103 O2 Sat by Pulse 95 94 L 92 L Oximetry 08/23/24 08/23/24 08/23/24 11:30 12:00 12:30 Temperature Pulse Rate 50 L 59 L 50 L Respiratory 18 18 18 Rate Blood Pressure 123/68 123/68 149/80 O2 Sat by Pulse 99 97 95 Oximetry 08/23/24 16:08 Temperature 98.5 F Pulse Rate 66 Respiratory 19 Rate Blood Pressure 163/88 O2 Sat by Pulse 98 Oximetry Medical Decision Making - Medical Decision Making Was pt. sent in by a medical professional or institution (, PA, ENTHONE SOLDER STRIPPER, urgent care, hospital, or longterm...) When possible be specific @ -No Did you speak to anyone other than the patient for history (EMS, parent, family, police, friend...)? What history was obtained from this source @ -No Did you review nursing and triage notes (agree or disagree)? Why? @ -I reviewed and agree with nursing and triage notes Were old charts reviewed (outside hosp., previous admission, EMS record, old EKG, old radiological studies, urgent care reports/EKG's, longterm records)? Report findings @ -Reviewed patient's chart note from 08/20/2024 where he underwent extensive testing including CT of the chest was unremarkable for PE Differential Diagnosis (chest pain, altered mental status, abdominal pain women, abdominal pain men, vaginal bleeding, weakness, fever, dyspnea, syncope, headache, dizziness, GI bleed, back pain, seizure, CVA, palpatations, mental health, musculoskeletal)? @ -Differential Chest Pain: Stable Angina, Unstable Angina, STEMI, NSTEMI Aortic Dissection, Pneumothorax, Musculoskeletal, Esophageal Spasm GERD, Cholecystitis, Pancreatitis, Zoster, this is not meant to be an all-inclusive list. EKG interpreted by me (3pts min.). @ -Completed at 0057 sinus rhythm with a ventricular rate of 63, MO interval 140, QRS 99, QTc 427. X-rays interpreted by me (1pt min.). @ -None done CT interpreted by me (1pt min.). @ -CTA completed on 08/20/24 no acute indication of PE U/S interpreted by me (1pt. min.). @ -None done What testing was considered but not performed or refused? (CT, X-rays, U/S, labs )? Why? @ -None What meds were considered but not given or refused? Why? @ -None Did you discuss the management of the patient with other professionals (professionals i.e. , PA, ENTHONE SOLDER STRIPPER, lab, RT, psych nurse, social media marketing manager, fire chief, teacher, unclaimed property officer, case picker)? Give summary @ -spoke with motion picture set up worker internal medicine physician, Dr. Kowalski, with [facility] emergency department physicians who has agreed to admit the patient for cardiac observation Was smoking cessation discussed for >3mins.? @ -No Was critical care preformed (if so, how long)? @ -No Were there social determinants of health that impacted care today? How? (Homelessness, low income, unemployed, alcoholism, drug addiction, transportation, low edu. Level, literacy, decrease access to med. care, senior care, rehab)? @ -No Was there de-escalation of care discussed even if they declined (Discuss DNR or withdrawal of care, Hospice)? DNR status @ -No What co-morbidities impacted this encounter? (DM, HTN, Smoking, COPD, CAD, Cancer, CVA, ARF, Chemo, Hep., AIDS, mental health diagnosis, sleep apnea, morbid obesity)? @ -smoking Was patient admitted / discharged? Hospital course, mention meds given and route, prescriptions, significant lab abnormalities, going to OR and other pertinent info. @ -Admitted. 54-year-old male presenting with chest pressure and hypertension. Patient is hypertensive on arrival with blood pressure 181/112. He states that he experiencing a headache and chest pressure located left side of his chest that is nonradiating. Patient is provided with IV fluids and Toradol and will be evaluated via cardiac workup. Chest x-ray is deferred at this time as patient underwent chest x-ray and CTA 2 days prior to arrival and there were no acute findings. Patient's laboratory testing including cardiac enzymes unremarkable. EKG sinus rhythm. Patient's blood pressure has decreased has been in the emerged part however he is been experiencing intermittent chest pressure. Patient does have mildly elevated heart score in addition to second presentation of chest pressure. Patient will be admitted to internal medicine with cardiology on consult for cardiac observation. Discussed with Dr. Bennett Undiagnosed new problem with uncertain prognosis? @ -No Drug Therapy requiring intensive monitoring for toxicity (Heparin, Nitro, Insulin, Cardizem)? @ -No Were any procedures done? @ -No Diagnosis/symptom? @ -Chest pressure, hypertension, headache Acute, or Chronic, or Acute on Chronic? @ -Acute Uncomplicated (without systemic symptoms) or Complicated (systemic symptoms)? @ -Complicated Side effects of treatment? @ -No Exacerbation, Progression, or Severe Exacerbation? @ -No Poses a threat to life or bodily function? How? (Chest pain, [place], [place], pneumonia, PE, COPD, DKA, ARF, appy, cholecystitis, CVA, Diverticulitis, Homicidal, Suicidal, threat to staff... and all critical care pts) @ -No - Lab Data Result diagrams: 08/23/24 01:00 08/23/24 01:00 Lab Results 08/23/24 08/23/24 08/23/24 Range/Units 01:00 01:00 01:00 WBC 10.3 (3.8-10.6) k/uL RBC 4.66 (4.30-5.90) m/uL Hgb 13.7 (13.0-17.5) gm/dL Hct 40.5 (39.0-53.0) % MCV 86.8 (80.0-100.0) fL MCH 29.4 (25.0-35.0) pg MCHC 33.8 (31.0-37.0) g/dL RDW 13.6 (11.5-15.5) % Plt Count 292 (150-450) k/uL MPV 7.6 Neutrophils % 68 % Lymphocytes % 25 % Monocytes % 5 % Eosinophils % 1 % Basophils % 0 % Neutrophils # 6.9 (1.3-7.7) k/uL Lymphocytes # 2.6 (1.0-4.8) k/uL Monocytes # 0.5 (0-1.0) k/uL Eosinophils # 0.1 (0-0.7) k/uL Basophils # 0.0 (0-0.2) k/uL PT 11.1 (10.0-12.5) sec INR 1.0 (<1.2) APTT 26.6 (22.0-30.0) sec Sodium 140 (137-145) mmol/L Potassium 3.5 (3.5-5.1) mmol/L Chloride 108 H (98-107) mmol/L Carbon Dioxide 24 (22-30) mmol/L Anion Gap 8 mmol/L BUN 9 (9-20) mg/dL Creatinine 0.79 (0.66-1.25) mg/dL Est GFR (CKD-EPI)AfAm >90 (>60 ml/min/1.73 sqM) Est GFR (CKD-EPI)NonAf >90 (>60 ml/min/1.73 sqM) Glucose 117 H (74-99) mg/dL Calcium 9.5 (8.4-10.2) mg/dL Magnesium 1.9 (1.6-2.3) mg/dL Total Bilirubin 0.8 (0.2-1.3) mg/dL AST 38 (17-59) U/L ALT 36 (4-49) U/L Alkaline Phosphatase 88 (38-126) U/L Troponin I (0.000-0.034) ng/mL Total Protein 8.0 (6.3-8.2) g/dL Albumin 4.8 (3.5-5.0) g/dL 08/23/24 Range/Units 01:00 WBC (3.8-10.6) k/uL RBC (4.30-5.90) m/uL Hgb (13.0-17.5) gm/dL Hct (39.0-53.0) % MCV (80.0-100.0) fL MCH (25.0-35.0) pg MCHC (31.0-37.0) g/dL RDW (11.5-15.5) % Plt Count (150-450) k/uL MPV Neutrophils % % Lymphocytes % % Monocytes % % Eosinophils % % Basophils % % Neutrophils # (1.3-7.7) k/uL Lymphocytes # (1.0-4.8) k/uL Monocytes # (0-1.0) k/uL Eosinophils # (0-0.7) k/uL Basophils # (0-0.2) k/uL PT (10.0-12.5) sec INR (<1.2) APTT (22.0-30.0) sec Sodium (137-145) mmol/L Potassium (3.5-5.1) mmol/L Chloride (98-107) mmol/L Carbon Dioxide (22-30) mmol/L Anion Gap mmol/L BUN (9-20) mg/dL Creatinine (0.66-1.25) mg/dL Est GFR (CKD-EPI)AfAm (>60 ml/min/1.73 sqM) Est GFR (CKD-EPI)NonAf (>60 ml/min/1.73 sqM) Glucose (74-99) mg/dL Calcium (8.4-10.2) mg/dL Magnesium (1.6-2.3) mg/dL Total Bilirubin (0.2-1.3) mg/dL AST (17-59) U/L ALT (4-49) U/L Alkaline Phosphatase (38-126) U/L Troponin I <0.012 (0.000-0.034) ng/mL Total Protein (6.3-8.2) g/dL Albumin (3.5-5.0) g/dL Disposition Clinical Impression: Hypertension, Chest pain Disposition: ADMITTED IP TO THIS [facility] Condition: Stable Is patient prescribed a controlled substance at d/c from ED?: No Decision to Admit Reason: Admit from EC Decision Date: 08/23/24 Decision Time: 03:15
[2024-08-23] MEDS: SODIUM CHLORIDE 0.9% 1,000 ML IV STA (01:24)
[2024-08-23] MEDS: KETOROLAC 15 MG/ML 1 ML VIAL IVP STA (01:24)
[2024-08-23 01:33] LABS: Basophils % (A) 0 %; Eosinophils # (A) 0.1 k/uL (0-0.7); Eosinophils % (A) 1 %; HCT 40.5 % (39.0-53.0); HGB 13.7 gm/dL (13.0-17.5); Lymphocytes # (A) 2.6 k/uL (1.0-4.8); Lymphocytes % (A) 25 %; MCH 29.4 pg (25.0-35.0); MCHC 33.8 g/dL (31.0-37.0); MCV 86.8 fL (80.0-100.0); Mean Platelet Volume 7.6; Monocytes # (A) 0.5 k/uL (0-1.0); Monocytes % (A) 5 %; Neutrophils # (A) 6.9 k/uL (1.3-7.7); Neutrophils % (A) 68 %; Platelet Count 292 k/uL (150-450); RBC 4.66 m/uL (4.30-5.90); RDW 13.6 % (11.5-15.5); WBC 10.3 k/uL (3.8-10.6)
[2024-08-23 01:39] LABS: ALT 36 U/L (4-49); AST 38 U/L (17-59); African American GFR (CKD) >90 (>60 ml/min/1.73 sqM); Albumin 4.8 g/dL (3.5-5.0); Alkaline Phosphatase 88 U/L (38-126); Anion Gap 8 mmol/L; Blood Urea Nitrogen 9 mg/dL (9-20); Calcium 9.5 mg/dL (8.4-10.2); Carbon Dioxide 24 mmol/L (22-30); Chloride 108 mmol/L (98-107); Glucose 117 mg/dL (74-99); Magnesium 1.9 mg/dL (1.6-2.3); Non-African American GFR(CKD) >90 (>60 ml/min/1.73 sqM); Potassium 3.5 mmol/L (3.5-5.1); Sodium 140 mmol/L (137-145); Total Bilirubin 0.8 mg/dL (0.2-1.3)
[2024-08-23 01:41] LABS: Partial Thromboplastin Time 26.6 sec (22.0-30.0); Prothrombin Time 11.1 sec (10.0-12.5)
[2024-08-23] MEDS ORDERED: NALOXONE 0.4 MG/ML 1 ML VIAL IV PRN (03:35)
[2024-08-23] MEDS ORDERED: MORPHINE SULFATE 4 MG/ML SYRINGE IV PRN (03:35)
[2024-08-23] MEDS: LORazepam 0.5 MG TAB PO PRN (04:01)
[2024-08-23] MEDS: ASPIRIN 325 MG TAB PO SCH (04:01)
[2024-08-23] MEDS: SODIUM CHLORIDE 0.9% 1,000 ML IV SCH (04:06)
[2024-08-23] MEDS: ASPIRIN 81 MG PO STA (04:08)
--- NOTE | 2024-08-23 06:09 | P.HPIM ---
History of Present Illness H&P Date: 08/23/24 Patient is a 54 year-old male with a PMH of TIA, hyperlipidemia, and tobacco abuse who presents to the emergency room with complaints of left-sided chest discomfort, headache, and elevated blood pressure. Patient reports that earlier tonight he started having a headache which prompted him to check his blood pressure which he found to be systolic 200s over 110s. The patient also reports that over the past several hours, he has been experiencing left-sided chest discomfort, unable to quantify, pressure-like in nature, nonradiating, with no alleviating or exacerbating features, and constant. Patient denies any additional complaints. He denied experiencing shortness of breath, fever, chills, cough, nausea, vomiting, abdominal pain, diarrhea. In the emergency room and EKG revealed sinus rhythm at [address]/T wave changes noted as reviewed by me. Laboratory evaluation revealed a troponin less than 0.013 with sodium 140 potassium 3.5, WBC count 10.3, hemoglobin 13.7. ED documentation reviewed and case discussed with ED provider. Review of systems: Pertinent positives and negatives as discussed in HPI, a complete review of systems was performed and all other systems are negative. Physical examination: Vital signs reviewed General: non toxic, no distress, appears at stated age, normal weight Derm: no unusual rashes/lesions, warm Head: atraumatic, normocephalic, symmetric Eyes: EOMI, no lid lag, anicteric sclera, pupils equal round reactive to light ENT: Nose and ears atraumatic Neck: No cervical lymphadenopathy, trachea midline, supple Mouth: no lip lesion, mucus membranes moist Cardiovascular: S1S2 reg, no murmur, positive dorsalis pedis pulse bilateral, no edema Lungs: CTA bilateral, no rhonchi, no rales, no accessory muscle use Abdominal: soft, nontender to palpation, no guarding Ext: muscle strength 5 out of 5 in all 4 extremities grossly, no gross muscle atrophy, no contractures, Neuro: CN II-XI grossly intact, no gross focal neuro deficits Psych: Alert, oriented, appropriate affect Assessment: Chest pain, rule out ACS Chronic conditions: Hypertension, tobacco abuse, hyperlipidemia, history of TIA Imaging: In the emergency room and EKG revealed sinus rhythm at [address]/T wave changes noted as reviewed by me. Data Review: Laboratory evaluation revealed a troponin less than 0.013 with sodium 140 potassium 3.5, WBC count 10.3, hemoglobin 13.7. Plan: Cardiology consult Trend troponin C/w ASA and statin Cardiac monitoring DVT prophylaxis: Lovenox Subq The patient is admitted with an anticipated less than 2 midnight stay for evaluation of chest pain CODE STATUS: Full Code Discussed with: Patient Anticipated discharge place: Home Past Medical History Past Medical History: CVA/TIA, Fibromyalgia, Hypertension, Musculoskeletal Disorder, Rheumatoid Arthritis (RA) Additional Past Medical History / Comment(s): MIGRAINES, COLITIS, ANKYLOSING SPONDYLITIS, BACK PAIN. History of Any Multi-Drug Resistant Organisms: C-DIFF Date of last positivie culture/infection: 2013 MDRO Source:: colitis Past Surgical History: Cholecystectomy, Orthopedic Surgery Additional Past Surgical History / Comment(s): neck sx CERVICAL FUSION C-4-5-6 &7. lumbar fusion L4 and L5 Past Anesthesia/Blood Transfusion Reactions: No Reported Reaction Past Psychological History: Anxiety Smoking Status: Never smoker Past Alcohol Use History: None Reported Past Drug Use History: None Reported - Past Family History Father Family Medical History: Hypertension Medications and Allergies Home Medications Medication Instructions Recorded Confirmed Type ALPRAZolam [Xanax] 1 mg PO QID@09,15,19,21 08/20/24 08/20/24 History Atorvastatin [Lipitor] 40 mg PO DAILY 08/20/24 08/20/24 History Patient Own Pump 0 bag 08/20/24 History Pregabalin [Lyrica] 225 mg PO TID 08/20/24 08/20/24 History Tamsulosin HCl [Flomax] 0.4 mg PO DAILY 08/20/24 08/20/24 History Allergies Allergy/AdvReac Type Severity Reaction Status Date / Time acetaminophen Allergy Rash/Hives Verified 08/23/24 00:57 [From Darvocet-N] propoxyphene Allergy Rash/Hives Verified 08/23/24 00:57 [From Darvocet-N] venom-honey bee Allergy Rash/Hives Verified 08/23/24 00:57 [bee venom (honey bee)] Physical Exam Vitals: Vital Signs Temp Pulse Resp BP Pulse Ox 08/23/24 05:00 54 L 17 173/95 98 08/23/24 02:40 54 L 16 174/96 98 08/23/24 02:10 58 L 20 167/98 97 08/23/24 01:40 56 L 19 177/93 98 08/23/24 01:10 61 14 173/101 100 08/23/24 00:54 98.7 F 64 15 181/112 99 Intake and Output 08/22/24 08/22/24 08/23/24 14:59 22:59 06:59 Other: Weight 90.718 kg Results CBC & Chem 7: 08/23/24 01:00 08/23/24 01:00 Labs: Abnormal Lab Results - Last 24 Hours (Table) 08/23/24 Range/Units 01:00 Chloride 108 H (98-107) mmol/L Glucose 117 H (74-99) mg/dL
[2024-08-23] MEDS: ATORVASTATIN 80 MG TAB PO STA (06:14)
[2024-08-23] MEDS: ALPRAZolam 1 MG TAB PO SCH (09:34)
[2024-08-23] MEDS: ATORVASTATIN 40 MG TAB PO SCH (09:35)
[2024-08-23] MEDS: PREGABALIN 75 MG CAP PO SCH (09:35)
[2024-08-23] MEDS: TAMSULOSIN 0.4 MG CAP.ER.24H PO SCH (09:35)
[2024-08-23] MEDS: amLODIPine 5 MG TAB PO SCH (09:36)
[2024-08-23] MEDS: PANTOPRAZOLE 40 MG/10 ML VIAL IV SCH (09:39)
[2024-08-23] MEDS: ENOXAPARIN 40 MG/0.4 ML SYRINGE SQ SCH (09:39)
--- NOTE | 2024-08-23 14:08 | P.PN ---
Subjective Progress Note Date: 08/23/24 Hospital course: Patient is a pleasant 54-year-old male with a past medical history of previous TIA, hyperlipidemia, BPH, anxiety and nicotine dependence. He presented to the emergency department with a chief complaint of left-sided chest pain, headache, and elevated blood pressure. Upon arrival to our facility, patient underwent evaluation in the emergency department. Vital signs upon arrival show blood pressure 181/112, heart rate 64, respiratory rate 15, temp 98.7 F, and SpO2 of 99% on room air. EKG was completed showing normal sinus rhythm at 63 bpm with no significant T wave or ST abnormality showing no signs of acute ischemia upon personal review and interpretation. Labs were completed and reviewed. CBC unremarkable. Coagulation profile normal findings. BMP showing hyperchloremia with chloride of 108 and glucose of 117 otherwise normal findings. Magnesium 1.9. Liver profile unremarkable. Troponin was negative at less than 0.012. Patient was admitted under our services with consultation to cardiology. Tropon ins trended overnight all negative at less than 0.012 x 3 draws. Physical exam: Patient seen and fully evaluated at bedside this morning. Patient reports continued tightness throughout left chest. He reports recently noting Vital signs reviewed and stable. General: Nontoxic, no distress and appears stated age. Derm: Skin warm and dry, normal coloration for ethnicity. Head: Atraumatic, normocephalic and symmetric. Eyes: EOM's intact, no lid lag, and anicteric sclera Mouth: no lip lesions, mucus membranes moist Cardiovascular: regular rate and rhythm with normal S1S2, no murmur, positive posterior tibial pulses bilaterally, and cap refill < 2 seconds. Lungs: Respirations even, regular, and unlabored on room air. Lungs CTA bilaterally, no rhonchi, no rales, no wheezing, and no accessory muscle usage. Abdominal: soft, nontender to palpation, no guarding, no appreciable organomegaly Ext: ROM intact. No gross muscle atrophy, no edema, no contractures Neuro: Speech clear, face symmetrical and CN II-XII grossly intact with no noted focal neuro deficits Psych: Alert and oriented to person, place, time, and situation. Appropriate and pleasant affect. Assessment and Plan of Care: Chest pain, rule out acute coronary event Hypertensive urgency on arrival Hyperlipidemia -Cardiology consulted, appreciate recommendations -Telemetry monitoring -Troponins negative at less than 0.012 x 3 draws. -Continue aspirin 81 mg daily, and atorvastatin 40 mg daily. -Patient started on amlodipine 5 mg daily for treatment of hypertension. Nicotine dependence -Educated patient on the importance of smoking cessation and offered nicotine patch however patient declining nicotine patch at this time. Data and imaging reviewed: -Vital signs reviewed. Blood pressure 165/97, heart rate 49, respiratory rate 18, temp 98.4 F, and SpO2 of 97% on room air. -Labs reviewed. CBC, coagulation profile normal findings. BMP showing hyperchloremia with chloride of 108 glucose of 117 otherwise normal findings. Magnesium 1.9. Liver profile unremarkable. Troponins negative at less than 0.012 x 3 draws. CODE STATUS: Full Code DVT prophylaxis: Lovenox Anticipated discharge date: Pending clinical course Anticipated discharge place: Home Patient was seen independently by Nurse Pracitioner. This document was prepared using [employer] dictation software. Please allow for errors in wastewater process engineer, while rare they do occur. Julito Porter NP rendered care for this patient independently, reviewed the findings and plan as documented in the note above and agree with plan. I did not physically speak with or examine the patient on this date. Objective - Vital Signs Vital signs: Vital Signs Temp 98.4 F 08/23/24 05:56 Pulse 49 L 08/23/24 07:30 Resp 18 08/23/24 07:30 BP 165/97 08/23/24 07:30 Pulse Ox 97 08/23/24 07:30 FiO2 Intake & Output 08/22/24 08/23/24 08/23/24 18:59 06:59 18:59 Weight 90.718 kg - Labs CBC & Chem 7: 08/23/24 01:00 08/23/24 01:00 Labs: Abnormal Lab Results - Last 24 Hours (Table) 08/23/24 Range/Units 01:00 Chloride 108 H (98-107) mmol/L Glucose 117 H (74-99) mg/dL
--- NOTE | 2024-08-23 14:08 | XR ---
EXAMINATION TYPE: XR chest 1V portable DATE OF EXAM: 08/23/2024 1:51 PM COMPARISON: Chest radiographs from 10/06/2016 CLINICAL INDICATION: Male, 54 years old with history of CP; TECHNIQUE: XR chest 1V portable Frontal view of the chest. FINDINGS: Lungs/Pleura: There is no evidence of pleural effusion, focal consolidation, or pneumothorax. Pulmonary vascularity: Unremarkable. Heart/mediastinum: Cardiomediastinal silhouette is unremarkable. Musculoskeletal: No acute osseous pathology. IMPRESSION: No acute cardiopulmonary disease/process. [facility], , 08/23/2024 2:05 PM
[2024-08-23 17:07] LABS: NT-Pro-B-Type Natriuretic Pept 116 pg/mL
--- NOTE | 2024-08-23 17:10 | P.CRDCN ---
History of Present Illness Consult date: 08/23/24 History of present illness: HISTORY OF PRESENTING ILLNESS 54-year-old male with past medical history of hypertension dyslipidemia BPH, anxiety, nicotine dependence marijuana use. He presented to the hospital because of substernal chest pressure-like symptoms, headache, feeling dizzy lightheaded along with symptoms of fluttering sensation in the chest. He smokes 1 to 2 packs/day, also uses marijuana. Reports that previously has had a TIA in the past at that time he was under significant stress and was smoking heavy. On admission troponins have been negative, BUN 9, creatinine 0.7, hemoglobin 13.7 EKG shows sinus rhythm, Chest x-ray did not show any significant cardiopulmonary process other than mild hyperinflation. REVIEW OF SYSTEMS 14 point review of system is negative except what is mentioned above in HPI. PHYSICAL EXAMINATION Vital signs reviewed. Head: Normocephalic. Eyes: Sclerae nonicteric. Neck: Brisk carotid upstroke, no jugular venous distention. Lungs: Clear to auscultation. Heart: Regular rate and rhythm, S1-S2, no S3, no murmur or rub. Abdomen: Soft nontender, positive bowel sounds. Extremities: No edema, intact distal pulses. Neuro: Alert, oritented, no focal deficits. Detailed neuro exam was not performed. ASSESSMENT Atypical chest pain, rule out of ACS Palpitations Concerns of TIA Hypertensive urgency Dyslipidemia Nicotine dependence, 1 to 2 packs. [id number] smoking history Marijuana use Chronic back pain with a pain pump Prior history of TIA PLAN Make sure patient is on aspirin, Lipitor 40 mg, losartan 25 mg, amlodipine 5 mg daily to go home with Recommend patient to monitor his blood pressure at home and maintain a blood pressure log Obtain NT-proBNP, HbA1c, lipid panel, TSH levels Recommend 30-day event monitor to be picked up from [facility] office on Sunday morning. Please give this patient instructions around this. Recommend outpatient echocardiogram and a ischemic evaluation with a stress test Eb Briseno MD, FACC, RPVI Thank you for allowing [facility] to participate in this patient's care. Feel free to reach out in case of any followup questions. Past Medical History Past Medical History: CVA/TIA, Fibromyalgia, Hypertension, Musculoskeletal Disorder, Rheumatoid Arthritis (RA) Additional Past Medical History / Comment(s): MIGRAINES, COLITIS, ANKYLOSING SPONDYLITIS, BACK PAIN. History of Any Multi-Drug Resistant Organisms: C-DIFF Date of last positivie culture/infection: 2013 MDRO Source:: colitis Past Surgical History: Cholecystectomy, Orthopedic Surgery Additional Past Surgical History / Comment(s): neck sx CERVICAL FUSION C-4-5-6 &7. lumbar fusion L4 and L5 Past Anesthesia/Blood Transfusion Reactions: No Reported Reaction Past Psychological History: Anxiety Smoking Status: Never smoker Past Alcohol Use History: None Reported Past Drug Use History: None Reported - Past Family History Father Family Medical History: Hypertension Medications and Allergies Home Medications Medication Instructions Recorded Confirmed Type ALPRAZolam [Xanax] 1 mg PO QID@,,,08/20/24 08/23/24 History Atorvastatin [Lipitor] 40 mg PO DAILY 08/20/24 08/23/24 History Patient Own Pump 0 bag 08/20/24 History Pregabalin [Lyrica] 225 mg PO TID 08/20/24 08/23/24 History Tamsulosin HCl [Flomax] 0.4 mg PO DAILY 08/20/24 08/23/24 History Allergies Allergy/AdvReac Type Severity Reaction Status Date / Time acetaminophen Allergy Rash/Hives Verified 08/23/24 08:20 [From Darvocet-N] propoxyphene Allergy Rash/Hives Verified 08/23/24 08:20 [From Darvocet-N] venom-honey bee Allergy Rash/Hives Verified 08/23/24 08:20 [bee venom (honey bee)] Physical Exam Vitals: Vital Signs Temp Pulse Resp BP Pulse Ox 08/23/24 16:08 98.5 F 66 19 163/88 98 08/23/24 12:30 50 L 18 149/80 95 08/23/24 12:00 59 L 18 123/68 97 08/23/24 11:30 50 L 18 123/68 99 08/23/24 11:00 47 L 17 165/103 92 L 08/23/24 10:30 46 L 16 165/103 94 L 08/23/24 10:00 50 L 19 181/97 95 08/23/24 07:30 49 L 18 165/97 97 08/23/24 06:37 50 L 16 170/99 96 08/23/24 05:56 98.4 F 08/23/24 05:00 54 L 17 173/95 98 08/23/24 02:40 54 L 16 174/96 98 08/23/24 02:10 58 L 20 167/98 97 08/23/24 01:40 56 L 19 177/93 98 08/23/24 01:10 61 14 173/101 100 08/23/24 00:54 98.7 F 64 15 181/112 99 Intake and Output 08/23/24 08/23/24 08/23/24 06:59 14:59 22:59 Other: Weight 90.718 kg Results 08/23/24 01:00 08/23/24 01:00 Cardiac Enzymes 08/23/24 08/23/24 08/23/24 Range/Units 01:00 01:00 04:00 AST 38 (17-59) U/L Troponin I <0.012 <0.012 (0.000-0.034) ng/mL 08/23/24 08/23/24 Range/Units 06:32 11:49 AST (17-59) U/L Troponin I <0.012 <0.012 (0.000-0.034) ng/mL Coagulation 08/23/24 Range/Units 01:00 PT 11.1 (10.0-12.5) sec APTT 26.6 (22.0-30.0) sec CBC 08/23/24 Range/Units 01:00 WBC 10.3 (3.8-10.6) k/uL RBC 4.66 (4.30-5.90) m/uL Hgb 13.7 (13.0-17.5) gm/dL Hct 40.5 (39.0-53.0) % Plt Count 292 (150-450) k/uL Comprehensive Metabolic Panel 08/23/24 Range/Units 01:00 Sodium 140 (137-145) mmol/L Potassium 3.5 (3.5-5.1) mmol/L Chloride 108 H (98-107) mmol/L Carbon Dioxide 24 (22-30) mmol/L BUN 9 (9-20) mg/dL Creatinine 0.79 (0.66-1.25) mg/dL Glucose 117 H (74-99) mg/dL Calcium 9.5 (8.4-10.2) mg/dL AST 38 (17-59) U/L ALT 36 (4-49) U/L Alkaline Phosphatase 88 (38-126) U/L Total Protein 8.0 (6.3-8.2) g/dL Albumin 4.8 (3.5-5.0) g/dL Current Medications Generic Name Dose Route Start Last Admin Trade Name Freq PRN Reason Stop Dose Admin Alprazolam 1 mg 08/23/24 09:21 08/23/24 16:19 Alprazolam 1 Mg Tab PO 1 mg QID@, KANWAL Administration Amlodipine Besylate 5 mg 08/23/24 09:30 08/23/24 09:38 Amlodipine 5 Mg Tab PO 5 mg DAILY KANWAL Administration Aspirin 81 mg 08/24/24 09:00 Aspirin 81 Mg PO DAILY KANWAL Atorvastatin Calcium 40 mg 08/23/24 09:30 08/23/24 09:35 Atorvastatin 40 Mg Tab PO 40 mg DAILY KANWAL Administration Enoxaparin Sodium 40 mg 08/23/24 09:00 08/23/24 09:39 Enoxaparin 40 Mg/0.4 Ml Syringe SQ 40 mg DAILY KANWAL Administration Sodium Chloride 1,000 mls @ 20 mls/hr 08/23/24 03:45 08/23/24 04:06 Saline 0.9% IV 20 mls/hr .Q24H KANWAL Administration Losartan Potassium 25 mg 08/23/24 17:15 Losartan 25 Mg Tab PO DAILY KANWAL Morphine Sulfate 4 mg 08/23/24 03:35 Morphine Sulfate 4 Mg/Ml Syringe IV Q4HR PRN Severe Pain (Scale 7 to 10) Naloxone HCl 0.2 mg 08/23/24 03:35 Naloxone 0.4 Mg/Ml 1 Ml Vial IV Q2M PRN Opioid Reversal Pantoprazole Sodium 40 mg 08/23/24 09:00 08/23/24 09:39 Pantoprazole 40 Mg/10 Ml Vial IV 40 mg DAILY KANWAL Administration Tamsulosin HCl 0.4 mg 08/23/24 09:30 08/23/24 09:35 Tamsulosin 0.4 Mg Cap.Er.24h PO 0.4 mg DAILY KANWAL Administration Intake and Output 08/23/24 08/23/24 08/23/24 06:59 14:59 22:59 Other: Weight 90.718 kg 08/23/24 01:00 08/23/24 01:00
--- NOTE | 2024-08-23 17:27 | P.DS ---
Providers Date of admission: 08/23/24 02:17 Expected date of discharge: 08/23/24 Attending physician: Braeden Kowalski MD Consults: 08/23/24 03:35 Consult Physician Routine Consulting Provider: Shanika Morales Consult Reason/Comments: cp,htn Do you want consulting provider notified?: Yes Primary care physician: Alejandra Heaton DO Hospital Course: Discharge Diagnosis: Chest pain, acute coronary event ruled out. Hypertensive urgency on arrival Hyperlipidemia Nicotine dependence. Educated patient on the importance of smoking cessation and offered nicotine patch however patient declining nicotine patch at this time. Hospital course: Patient is a pleasant 54-year-old male with a past medical history of previous TIA, hyperlipidemia, BPH, anxiety and nicotine dependence. He presented to the emergency department with a chief complaint of left-sided chest pain, headache, and elevated blood pressure. Upon arrival to our facility, patient underwent evaluation in the emergency department. Vital signs upon arrival show blood pressure 181/112, heart rate 64, respiratory rate 15, temp 98.7 F, and SpO2 of 99% on room air. EKG was completed showing normal sinus rhythm at 63 bpm with no significant T wave or ST abnormality showing no signs of acute ischemia upon personal review and interpretation. Labs were completed and reviewed. CBC unremarkable. Coagulation profile normal findings. BMP showing hyperchloremia with chloride of 108 and glucose of 117 otherwise normal findings. Magnesium 1.9. Liver profile unremarkable. Troponin was negative at less than 0.012. Patient was admitted under our services with consultation to cardiology. Troponins trended overnight all negative at less than 0.012 x 4 draws. Patient was evaluated by venetian blind assembler and in addition to daily aspirin, atorvastatin, and amlodipine patient also started on losartan 25 mg daily. Received notification from venetian blind assembler that patient cleared from their perspective for discharge recommending patient to follow-up outpatient in his office on Sunday for placement of event monitor and scheduling of follow-up appointment for echocardiogram and nonstress testing. Physical exam: Vital signs reviewed and stable. General: Nontoxic, no distress and appears stated age. Derm: Skin warm and dry, normal coloration for ethnicity. Head: Atraumatic, normocephalic and symmetric. Eyes: EOM's intact, no lid lag, and anicteric sclera Mouth: no lip lesions, mucus membranes moist Cardiovascular: regular rate and rhythm with normal S1S2, no murmur, positive posterior tibial pulses bilaterally, and cap refill < 2 seconds. Lungs: Respirations even, regular, and unlabored on room air. Lungs CTA bilaterally, no rhonchi, no rales, no wheezing, and no accessory muscle usage. Abdominal: soft, nontender to palpation, no guarding, no appreciable organomegaly Ext: ROM intact. No gross muscle atrophy, no edema, no contractures Neuro: Speech clear, face symmetrical and CN II-XII grossly intact with no noted focal neuro deficits Psych: Alert and oriented to person, place, time, and situation. Appropriate and pleasant affect. A total of 31 minutes of time were spent preparing this complex discharge summary. Pt was discharged on 08/23/2024 at 5:13 PM Patient was seen independently by Nurse Practitioner. This document was prepared using [employer] dictation software. Please allow for errors in template clerk while rare they do occur. Julito Porter NP rendered care for this patient independently, reviewed the findings and plan as documented in the note above. I did not physically speak with or examine the patient on this date. Patient Condition at Discharge: Stable Plan - Discharge Summary New Discharge Prescriptions: New Losartan [Cozaar] 25 mg PO DAILY 30 Days #30 tab Aspirin 81 mg PO DAILY 30 Days #30 tab amLODIPine [Norvasc] 5 mg PO DAILY 30 Days #30 tab Continue Atorvastatin [Lipitor] 40 mg PO DAILY Pregabalin [Lyrica] 225 mg PO TID ALPRAZolam [Xanax] 1 mg PO QID@,,, Tamsulosin HCl [Flomax] 0.4 mg PO DAILY Patient Own Pump 0 bag Discharge Medication List ALPRAZolam [Xanax] 1 mg PO QID@,,,21 08/20/24 [History] Atorvastatin [Lipitor] 40 mg PO DAILY 08/20/24 [History] Patient Own Pump 0 bag 08/20/24 [History] Pregabalin [Lyrica] 225 mg PO TID 08/20/24 [History] Tamsulosin HCl [Flomax] 0.4 mg PO DAILY 08/20/24 [History] Aspirin 81 mg PO DAILY 30 Days #30 tab 08/23/24 [Rx] Losartan [Cozaar] 25 mg PO DAILY 30 Days #30 tab 08/23/24 [Rx] amLODIPine [Norvasc] 5 mg PO DAILY 30 Days #30 tab 08/23/24 [Rx] Follow up Appointment(s)/Referral(s): Eb Briseno MD [Medical Doctor] - 08/25/24 Alejandra Heaton DO [Primary Care Provider] - 1-2 days Patient Instructions/Handouts: Chest Pain (DC), Heart Palpitations (DC), How to Stop Smoking (DC) Activity/Diet/Wound Care/Special Instructions: Activity: As tolerated. Take breaks as needed. Diet: Heart healthy and carb consistent diet. Avoid salts, or foods with hidden salts such as canned or boxed foods and frozen dinners. Extra salt makes your heart work harder and traps the fluid in your body for longer. Special Instructions: Take all of your medications as directed and remember to keep all of your doctor's appointments and follow-up as needed. As discussed with you by venetian blind assembler at the bedside, you will need to follow- up in their office at [address] on Sunday for placement of 30-day event monitor and scheduling of follow-up visit both for echocardiogram and rec ommended outpatient stress testing.. Wishing you a blessed and wonderful holiday season and a happy healthy new year !! thank you for allowing us to participate in your care, it was truly a pleasure having you for our patient!!! . Discharge Disposition: HOME SELF-CARE
[2024-08-23] MEDS: LOSARTAN 25 MG TAB PO SCH (17:37)
[2024-08-23 19:41] VITALS: BP 167/98; PULSE 58; RESP 17; TEMP 98
[2024-08-23] MEDS ORDERED: ATORVASTATIN 80 MG TAB PO SCH (21:00)
[2024-08-24] MEDS ORDERED: ASPIRIN 81 MG PO SCH (09:00)
[2024-08-24 09:38] LABS: Chol/HDL Ratio 4.34 Ratio; LDL Cholesterol,Calculated 103.9 mg/dL (0.0-131.0)
== END 2024-08-23 19:41 | disposition home or self-care (01) ==
LOC: EC 00:52 → 6NMEDSUR 02:17
PROVIDERS: ADMIT Internal Medicine; ATTEND Internal Medicine
DX: R07.89 Other chest pain (principal); I16.0 Hypertensive urgency; I10 Essential (primary) hypertension; E78.5 Hyperlipidemia, unspecified; N40.0 Benign prostatic hyperplasia without lower urinary tract symptoms; E87.8 Other disorders of electrolyte and fluid balance, not elsewhere classified; F41.9 Anxiety disorder, unspecified; F12.90 Cannabis use, unspecified, uncomplicated; G89.29 Other chronic pain; M54.9 Dorsalgia, unspecified; M45.9 Ankylosing spondylitis of unspecified sites in spine; F17.210 Nicotine dependence, cigarettes, uncomplicated; Z79.899 Other long term (current) drug therapy; Z88.5 Allergy status to narcotic agent; Z88.6 Allergy status to analgesic agent; Z91.030 Bee allergy status; Z97.8 Presence of other specified devices; Z86.73 Personal history of transient ischemic attack (TIA), and cerebral infarction without residual deficits
CPT/HCPCS: 96361; 96372; 96374; 96375; 99285; 36415; 93005; 83880; 80061; 80053; 84443; 83735; 84484; 85025; 85610; 85730; 83036; 71045; G0378; J1650; J1885; J2470